=== PATIENT | female | born 1955 | race Caucasian/White ===

== ENCOUNTER → 2016-08-05 | Outpatient (REF) | payer OTHER ==
[~2016-08-05] MED LIST: BUSP10TA2 OR; EC-N500T OR; FLEXARIL PO; FURO20TA2 OR; METROPROLOL PO; POTASSIUM OR; SERT50TA2 OR; VICO5TAB OR; VITAMIN D PO; VITAMIN D50000 UNT OR; [UNRECOGNIZED DRUG - OTHER] PO; [UNRECOGNIZED DRUG - OTHER] PO
[2016-08-05 11:47] LABS: BASO % 0.7 % (0.0-1.0); EOS # 0.1 K/mm3 (0.0-0.50); EOS % 2.5 % (0.0-3.0); LARGE UNSTAINED CELL # 0.1 K/mm3 (0.0-0.4); LARGE UNSTAINED CELL % 1.4 % (0.0-4.0); LYMPH # 1.8 K/mm3 (1.5-4.5); LYMPH % 34.8 % (24.0-44.0); MEAN CORPUSCULAR HEMOGLOBIN 31.1 pg (27.0-33.0); MEAN CORPUSCULAR HGB CONC 32.3 g/dl (32.0-36.5); MEAN CORPUSCULAR VOLUME 96.3 fl (80.0-96.0); MONO # 0.3 K/mm3 (0.0-0.8); MONO % 5.6 % (0.0-5.0); NEUTROPHILS # 2.7 K/mm3 (1.8-7.7); PLATELET COUNT, AUTOMATED 186 k/mm3 (150-450)
[2016-08-05 12:05] LABS: ALBUMIN 3.5 GM/DL (3.2-5.2); ALKALINE PHOSPHATASE 71 U/L (45-117); ALT/SGPT 20 U/L (12-78); ANION GAP 7 MEQ/L (8-16); AST/SGOT 16 U/L (15-37); BILIRUBIN,TOTAL 0.4 MG/DL (0.2-1.0); BLOOD UREA NITROGEN 14 MG/DL (7-18); CALCIUM LEVEL 8.9 MG/DL (8.5-10.1); CARBON DIOXIDE LEVEL 28 MEQ/L (21-32); CHLORIDE LEVEL 110 MEQ/L (98-107); CHOLESTEROL LEVEL 216 MG/DL (<200); CREATININE FOR GFR 0.53 MG/DL (0.55-1.02); GLOMERULAR FILTRATION RATE > 60.0 (>51); GLUCOSE, FASTING 82 MG/DL (70-105); POTASSIUM SERUM 4.3 MEQ/L (3.5-5.1); SODIUM LEVEL 145 MEQ/L (136-145); TRIGLYCERIDES LEVEL 62 MG/DL (<150)
== END ==
LOC: M SFHCPLAZ 08:31
PROVIDERS: ATTEND Nurse Practitioner Family
DX: D50.9 Iron deficiency anemia, unspecified (principal); I10 Essential (primary) hypertension

== ENCOUNTER → 2016-09-02 | Outpatient (CLI) | payer OTHER ==
--- NOTE | 2016-09-02 08:46 | REPMRS ---
Patient History The patient states she has not had a clinical breast exam in over a year. Patient is postmenopausal. Family history of colorectal cancer in maternal grandfather. Benign stereotactic core biopsy of the right breast, 2006. Digital Woman Screen Mammo: September 02, 2016 - Exam #: [id number] Bilateral CC and MLO view(s) were taken. Technologist: Lani Weems, Technologist Prior study comparison: January 16, 2015, bilateral digital mammo screening bilat, performed at [facility]. July 14, 2010, digital bilateral screening mammo, performed at [facility]. FINDINGS: There are scattered fibroglandular densities. There has been no change in the appearance of the mammogram from the prior studies. There is a marker clip adjacent to a nodule in the upper outer quadrant of the right breast again noted. The nodule is a little smaller. There is a mild amount of scattered fibroglandular density which is fairly symmetric. There is no interval development of dominant mass, architectural distortion, or clustered microcalcification suggestive of malignancy. ASSESSMENT: BI-RADS/ACR category 2 mammogram. Benign finding(s). Recommendation Routine screening mammogram in 1 year (for women over age 40). This mammogram was interpreted with the aid of an FDA-approved computer-aided dectection system. Electronically Signed By: Dank Sanchez MD 09/02/16 0846
== END ==
LOC: M WHC 08:06
PROVIDERS: ATTEND Nurse Practitioner Family
DX: Z12.31 Encounter for screening mammogram for malignant neoplasm of breast (principal)

== ENCOUNTER → 2016-11-04 | Outpatient (REF) | payer OTHER ==
[2016-11-04 11:47] LABS: BASO % 0.5 % (0.0-1.0); EOS # 0.1 K/mm3 (0.0-0.50); EOS % 1.2 % (0.0-3.0); LARGE UNSTAINED CELL # 0.1 K/mm3 (0.0-0.4); LARGE UNSTAINED CELL % 1.3 % (0.0-4.0); LYMPH # 1.5 K/mm3 (1.5-4.5); LYMPH % 28.1 % (24.0-44.0); MEAN CORPUSCULAR HEMOGLOBIN 32.2 pg (27.0-33.0); MEAN CORPUSCULAR HGB CONC 33.8 g/dl (32.0-36.5); MEAN CORPUSCULAR VOLUME 95.4 fl (80.0-96.0); MONO # 0.3 K/mm3 (0.0-0.8); MONO % 5.4 % (0.0-5.0); NEUTROPHILS # 3.2 K/mm3 (1.8-7.7); NEUTROPHILS % 63.5 % (36.0-66.0); PLATELET COUNT, AUTOMATED 197 k/mm3 (150-450); RED CELL DISTRIBUTION WIDTH 12.1 % (11.5-14.5); WHITE BLOOD COUNT 5.1 K/mm3 (4.0-10.0)
[2016-11-04 11:56] LABS: ALBUMIN 3.8 GM/DL (3.2-5.2); ALBUMIN/GLOBULIN RATIO 1.46 (1.00-1.93); ALKALINE PHOSPHATASE 79 U/L (45-117); ALT/SGPT 17 U/L (12-78); ANION GAP 8 MEQ/L (8-16); AST/SGOT 9 U/L (15-37); BILIRUBIN,TOTAL 0.4 MG/DL (0.2-1.0); BLOOD UREA NITROGEN 14 MG/DL (7-18); CALCIUM LEVEL 9.3 MG/DL (8.8-10.2); CARBON DIOXIDE LEVEL 28 MEQ/L (21-32); CHLORIDE LEVEL 108 MEQ/L (98-107); CREATININE FOR GFR 0.56 MG/DL (0.55-1.02); GLOMERULAR FILTRATION RATE > 60.0 (>45); GLUCOSE, FASTING 81 MG/DL (80-110); POTASSIUM SERUM 4.5 MEQ/L (3.5-5.1); SODIUM LEVEL 144 MEQ/L (136-145); TOTAL PROTEIN 6.4 GM/DL (6.4-8.2)
== END ==
LOC: M SFHCPLAZ 08:09
PROVIDERS: ATTEND Nurse Practitioner Family
DX: D50.9 Iron deficiency anemia, unspecified (principal); I10 Essential (primary) hypertension

== ENCOUNTER → 2016-11-25 | Outpatient (CLI) | payer OTHER ==
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
== END ==
LOC: M PAIN 15:30
PROVIDERS: ATTEND Anesthesiology
DX: G89.29 Other chronic pain (principal); M47.812 Spondylosis without myelopathy or radiculopathy, cervical region; M79.1 Myalgia; E55.9 Vitamin D deficiency, unspecified; D50.9 Iron deficiency anemia, unspecified; I10 Essential (primary) hypertension; E78.4 Other hyperlipidemia; E53.8 Deficiency of other specified B group vitamins; F41.9 Anxiety disorder, unspecified; F32.9 Major depressive disorder, single episode, unspecified; G43.909 Migraine, unspecified, not intractable, without status migrainosus; I87.2 Venous insufficiency (chronic) (peripheral); G47.30 Sleep apnea, unspecified; Z79.899 Other long term (current) drug therapy; Z87.891 Personal history of nicotine dependence

== ENCOUNTER → 2016-11-30 | Outpatient (CLI) | payer OTHER ==
[~2016-11-30] MED LIST changes: +BUPIVACAINE HCL 0.25% 10 ML VIAL As Ordered ONE; +BUPIVACAINE HCL 0.25% 30 ML VIAL As Ordered ONE; +TRIAMCINOLONE ACETONIDE SUSP 40 MG/ML VIAL (J3301) As Ordered ONE; +diazePAM 5 MG TAB As Ordered ONE; +oxyCODONE 5MG TAB As Ordered ONE
--- NOTE | 2016-12-04 23:30 | ECWPNPC ---
PATIENT NAME: BAMBI ENRIQUEZ : 1955 GENDER: FEMALE VISIT DATE: 11/30/2016 DISCHARGE DATE: 11/30/161650 VISIT LOCKED DATE TIME: PHYSICIAN: RACHELLE RIVERS RESOURCE: RACHELLE RIVERS REASON FOR APPOINTMENT 1. TPI BILATERAL NECK AND LEFT SHOULDER HISTORY OF PRESENT ILLNESS HISTORY OF PRESENT ILLNESS: PAIN THE PATIENT DESCRIBES THE PAIN... FALL RISK SCREENING: SCREENING :NO FALLS IN THE PAST YEAR CURRENT MEDICATIONS TAKING BIOTIN 1000 MCG TABLET 1 TABLET ORALLY ONCE A DAY, NOTES: NONE TAKING VITAMIN C 1000 MG TABLET 1 TABLET ORALLY ONCE A DAY, NOTES: 11-29-16 AM TAKING VITAMIN B 12 500 MCG TABLET 1 TAB(S) ORALLY ONCE A DAY, NOTES: 11-29-16 AM TAKING CALCIUM 600 MG TABLET 1 TABLET WITH MEALS ORALLY ONCE A DAY, NOTES: 11-29-16 TAKING DRISDOL 81833 UNIT CAPSULE 1 CAPSULE ORALLY ONCE A WEEK, NOTES: MONDAY TAKING NORCO 5-325 MG TABLET 1 TABLET ORALLY TWICE DAILY NEEDED, MDD=2, NOTES: 11-30-16399 TAKING METOPROLOL TARTRATE 50 MG TABLET 1 TABLET ORALLY DAILY, NOTES: 11-29-16 AM TAKING BUSPIRONE HCL 10 MG TABLET 1 TAB ORALLY TWICE A DAY, NOTES: 11-29-162099 TAKING ZONISAMIDE 50 MG CAPSULE 1 CAPSULE ORALLY 50MG IN AM AND 100MG I PM, NOTES: 11-30-16399 TAKING IMITREX 25 MG TABLET 1 TABLET NEEDED ORALLY ONE PILL AT ONSET OF HEADACHE, MAY REPEAT X 1 IN 2 HOURS HAS APPROX 4 HEADACHES A MONTH, NOTES: NONE TAKING FERROUS SULFATE 325 (65 FE) MG TABLET 1 TABLET ORALLY DAILY, NOTES: 11-29-16 AM TAKING DULOXETINE HCL 30 MG CAPSULE DELAYED RELEASE PARTICLES 1 CAPSULE WITH FOOD ORALLY FOR PAIN TWICE A DAY MDD2, NOTES: 11-29-16 AM TAKING IBUPROFEN 800 MG TABLET 1 TABLET WITH FOOD OR MILK ORALLY NEEDED FOR PAIN MDD3 THREE TIMES A DAY, NOTES: 11-30-16 0900 DISCONTINUED MOBIC 15 MG TABLET 1 TABLET ORALLY ONCE A DAY DISCONTINUED ZOSTAVAX 74596 UNT/0.65ML SOLUTION RECONSTITUTED 1 INJECTION SUBCUTANEOUS ONE TIME DOSE DISCONTINUED HYDROCHLOROTHIAZIDE 12.5 MG TABLET 1 TABLET IN THE MORNING ORALLY ONCE A DAY MEDICATION LIST REVIEWED AND RECONCILED WITH THE PATIENT PAST MEDICAL HISTORY VIT D DEF 11/26 R KNEE XRAY WITH MODERATE OA CHANGES DEPRESSION/ANXIETY HTN FE DEF B12 DEF CHRONIC VENOUS INSUFF INSOMNIA HYPERLIPIDEMIA 08/29 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 ALLERGIES N.K.D.A. REVIEW OF SYSTEMS REVIEWED BY: PROVIDER: . CONSTITUTIONAL: ANY CHANGE IN YOUR MEDICAL CONDITION? NO . CHILLS NO . FEVER NO . INFECTION: DO YOU HAVE NEW INFECTIONS? NO . DO YOU HAVE HISTORY OF MRSA? NO . MUSCULOSKELETAL: ANY NEW PATTERNS OF PAIN OR NUMBNESS? NO . GASTROENTEROLOGY: ANY NEW CHANGE IN BOWEL CONTROL? NO . GENITOURINARY: ANY NEW CHANGE IN BLADDER CONTROL? NO . IS THERE A CHANCE YOU COULD BE ? NO . HEMATOLOGY/LYMPH: DO YOU TAKE ANY BLOOD THINNERS? (FOR EXAMPLE- COUMADIN, PLAVIX, AGGRENOX, PLATEL, PRADAXA, OR XARELTO) NO . WHEN WAS YOUR LAST DOSE? DATE: TIME: . NEUROLOGY: HAVE YOU FALLEN IN THE PAST 6 MONTHS? NO . ANY NEW EXTREMITY NUMBNESS OR WEAKNESS? NO . CARDIOLOGY: DO YOU HAVE A PACEMAKER OR DEFIBRILLATOR? NO . RESPIRATORY: HAVE YOU BEEN SICK IN THE PAST WEEK? NO . FEVER NO . FLU LIKE SYMPTOMS? NO . COUGH NO . INTEGUMENTARY: DO YOU HAVE ANY RASHES OR OPEN SORES? NO . ALLERGIC/IMMUNO: ARE YOU ALLERGIC TO SHELLFISH OR IV DYE? NO . ANY NEW ALLERGIES? NO . PSYCHIATRIC: DO YOU HAVE THOUGHTS OF HURTING YOURSELF OR SOMEONE ELSE? NO . ARE YOU ABUSED, NEGLECTED, OR IN AN UNSAFE ENVIRONMENT? NO . ENDOCRINOLOGY: ARE YOU DIABETIC? NO . OTHER: DO YOU NEED ANY PRESCRIPTIONS? NO . IF YES, PLEASE LIST: ____ . ANY NEW PROBLEMS WITH YOUR MEDICATIONS? NO . WHEN DID YOU LAST EAT? 11-30-16 AM . WHEN DID YOU LAST DRINK? 11-30-16 1030 . WHAT DID YOU LAST DRINK? BLACK COFFEE . NAME OF PERSON DRIVING YOU HOME? MIGUEL . DO YOU HAVE ANY OTHER QUESTIONS OR CONCERNS NO . VITAL SIGNS WT 143 LBS, HT 61 IN, BMI 27.02 INDEX, BP 113/58 MM HG, HR 68 /MIN, RR 16 /MIN, TEMP 98.8 F, OXYGEN SAT % 99%, NA INITIALS AW 1456, REVIEWED BY: CM. ASSESSMENTS MYALGIA - M79.1 (PRIMARY) PROCEDURES PN TRIGGER POINT INJECTION WITH STEROIDS PRE PROCEDURE DIAGNOSIS 1. MYALGIA 2. PAIN AT BILATERAL NECK AREA AND LEFT SHOULDER AREA POST PROCEDURE DIAGNOSIS 1. MYALGIA 2. PAIN AT BILATERAL NECK AREA AND LEFT SHOULDER AREA PROCEDURE TRIGGER POINT INJECTION AT BILATERAL NECK AREA AND LEFT SHOULDER AREA SURGEON DR. RACHELLE RIVERS CURRICULUM COORDINATOR NONE ANESTHESIA LOCAL PRE PROCEDURE NOTE THE PATIENT HAS A HISTORY OF CHRONIC PAIN AT THE RIGHT AND LEFT NECK AREA AND AT THE LEFT SHOULDER AREA. I EVALUATE THE PATIENT AND REVIEWED THE CHART. THERE IS EVIDENCE OF BANDS OF TISSUE WITH RESTRICTION OF MOVEMENT AND PRESENCE OF TRIGGER POINT AT THE AFFECTED AREA. I WENT OVER THE RISKS, ALTERNATIVES, AND BENEFITS ASSOCIATED WITH THIS PROCEDURE. THE PATIENT WOULD LIKE TO PROCEED AND GIVE CONSENT TO PERFORMED THE PROCEDURE. THE PATIENT DENIES UNEXPLAINABLE WEIGHT LOSS, FEVER, CHILLS, OR NEW CHANGES IN URINARY OR BOWEL CONTROL DESCRIPTION OF PROCEDURE THE PATIENT WAS BROUGHT TO THE PROCEDURE ROOM AND PLACED IN THE SITTING POSITION. THE AREA WAS CLEANED WITH ALCOHOL. THE PROCEDURE WAS DONE USING ASEPTIC STERILE TECHNIQUE. I CHECKED LATERALITY AND THE LEVEL WHERE THE PROCEDURE WAS GOING TO BE PERFORMED WITH THE PATIENT AND THE SUPPORTING STAFF AT THE MOMENT OF THE TIME OUT IN THE PROCEDURE ROOM. USING A 25-GAUGE NEEDLE, TRIGGER POINTS WERE INJECTED AT THE RIGHT AND LEFT NECK AREA AND AT THE LEFT SHOULDER AREA WITH A TOTAL OF 40 ML OF BUPIVACAINE 0.25% AND KENALOG 40 MG. THERE WAS NO EVIDENCE OF BLOOD, PARESTHESIA OR CEREBROSPINAL FLUID DURING THE PROCEDURE. THE PATIENT WAS SENT TO THE RECOVERY ROOM. THE PATIENT WAS MOVING THE EXTREMITIES AND DOING WELL. THERE WAS NO COMPLICATION DURING THE PROCEDURE POST PROCEDURE NOTE THE PATIENT WILL BE SEEN IN A FOLLOW UP IN THE NEXT FEW WEEKS. INSTRUCTIONS WERE GIVEN, QUESTIONS WERE ANSWERED, AND THE PATIENT EXPRESSED UNDERSTANDING AND AGREES WITH THE PLAN. I JORDYN MUSE DOCUMENTED THE ABOVE INFORMATION ACTING A SHRIMPER FOR DR. RIVERS. I HAVE REVIEWED THE ABOVE DOCUMENT WRITTEN BY JORDYN MUSE SCRIBMyriam AND I VERIFY THAT IT IS ACCURATE. PROCEDURE CODES 24500 INJECT TRIGGER POINTS 3/> DISPOSITION & COMMUNICATION FOLLOW UP 3 WEEKS ELECTRONICALLY SIGNED BY RACHELLE RIVERS MD ON 12/04/2016 AT 12:53 PM EDT DISCLAIMER : THIS IS A VISIT SUMMARY EXTRACTED FROM THE Turned On Digital CHART. IT IS NOT A COPY OF THE [employer]ed On Digital PROGRESS NOTE. [facility]
== END ==
LOC: M PAIN 14:45
PROVIDERS: ATTEND Anesthesiology
DX: G89.29 Other chronic pain (principal); M54.2 Cervicalgia; M25.512 Pain in left shoulder; M79.1 Myalgia; F32.9 Major depressive disorder, single episode, unspecified; F41.9 Anxiety disorder, unspecified; I10 Essential (primary) hypertension; I87.2 Venous insufficiency (chronic) (peripheral); E53.8 Deficiency of other specified B group vitamins; D50.9 Iron deficiency anemia, unspecified; G43.909 Migraine, unspecified, not intractable, without status migrainosus; E78.4 Other hyperlipidemia; M17.11 Unilateral primary osteoarthritis, right knee; Z79.891 Long term (current) use of opiate analgesic; Z79.899 Other long term (current) drug therapy
CPT/HCPCS: 20553; J3301

== ENCOUNTER → 2016-12-21 | Outpatient (CLI) | payer OTHER ==
[~2016-12-21] MED LIST changes: -BUPIVACAINE HCL 0.25% 10 ML VIAL As Ordered ONE; -BUPIVACAINE HCL 0.25% 30 ML VIAL As Ordered ONE; -TRIAMCINOLONE ACETONIDE SUSP 40 MG/ML VIAL (J3301) As Ordered ONE; -diazePAM 5 MG TAB As Ordered ONE; -oxyCODONE 5MG TAB As Ordered ONE
--- NOTE | 2017-01-11 01:45 | ECWPNPC ---
PATIENT NAME: BAMBI ENRIQUEZ : 1955 GENDER: FEMALE VISIT DATE: 12/21/2016 DISCHARGE DATE: 12/21/16 1251 VISIT LOCKED DATE TIME: PHYSICIAN: ANDREW CORMIER RESOURCE: ANDREW CORMIER REASON FOR APPOINTMENT 1. POST TPI HISTORY OF PRESENT ILLNESS TODAY'S VISIT: NOTES: RATES PAIN TODAY 6/10. PAIN CENTERED AT BASE OF NECK. DESCRIBES PAIN INTERMITTANT, STABBING, ACHING, AND SORE. IS S/P TPI TO NECK/SHOULDER AREA ON 11/30/16. DID NOT EXPERIENCE MUCH PAIN RELIEF UNTIL ALMOST 2 WEEKS LATER. WAS STATED ON IBU 800 BUT MADE HER "DEATHLY SICK" IS S/P GASTRIC BYPASS 6 YEARS AGO. PAIN IS WORSE AT THE END OF THE DAY AFTER WORK. HAS INTERMITTANT N/T IN RIGHT HAND. ROM IN NECK IS POOR. SLEEP IS POOR DUE TO NECK PAIN. IS VERY TIRED.. CURRENT MEDICATIONS TAKING BIOTIN 1000 MCG TABLET 1 TABLET ORALLY ONCE A DAY TAKING VITAMIN C 1000 MG TABLET 1 TABLET ORALLY ONCE A DAY TAKING VITAMIN B 12 500 MCG TABLET 1 TAB(S) ORALLY ONCE A DAY TAKING CALCIUM 600 MG TABLET 1 TABLET WITH MEALS ORALLY ONCE A DAY TAKING DRISDOL 45642 UNIT CAPSULE 1 CAPSULE ORALLY ONCE A WEEK TAKING NORCO 5-325 MG TABLET 1 TABLET ORALLY TWICE DAILY NEEDED, MDD=2 TAKING METOPROLOL TARTRATE 50 MG TABLET 1 TABLET ORALLY DAILY TAKING BUSPIRONE HCL 10 MG TABLET 1 TAB ORALLY TWICE A DAY TAKING ZONISAMIDE 50 MG CAPSULE 1 CAPSULE ORALLY 50MG IN AM AND 100MG I PM TAKING IMITREX 25 MG TABLET 1 TABLET NEEDED ORALLY ONE PILL AT ONSET OF HEADACHE, MAY REPEAT X 1 IN 2 HOURS HAS APPROX 4 HEADACHES A MONTH TAKING FERROUS SULFATE 325 (65 FE) MG TABLET 1 TABLET ORALLY DAILY TAKING DULOXETINE HCL 30 MG CAPSULE DELAYED RELEASE PARTICLES 1 CAPSULE WITH FOOD ORALLY FOR PAIN TWICE A DAY MDD2, NOTES: HAS NOT RECIEVED YET NOT-TAKING IBUPROFEN 800 MG TABLET 1 TABLET WITH FOOD OR MILK ORALLY NEEDED FOR PAIN MDD3 THREE TIMES A DAY, NOTES: MAKES HER SICK MEDICATION LIST REVIEWED AND RECONCILED WITH THE PATIENT PAST MEDICAL HISTORY VIT D DEF 11/26 R KNEE XRAY WITH MODERATE OA CHANGES DEPRESSION/ANXIETY HTN FE DEF B12 DEF CHRONIC VENOUS INSUFF INSOMNIA HYPERLIPIDEMIA 08/29 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 ALLERGIES N.K.D.A. SURGICAL HISTORY CHOLECYSTECTOMY IN HER 30S GASTRIC BYPASS - DR MIRELES 03/27/2012 D & C X 2, WHEN YOUNGER D/T IRREG BLEEDING TONSILS AND ADENOIDS A CHILD R BREAST BX, DR NEELY 2008 HOSPITALIZATION/MAJOR DIAGNOSTIC PROCEDURE GASTRIC BYPASS 03/28 CHOLECYSTECTOMY IN HER 30S VAGINAL DELIVERIES 1975, REVIEW OF SYSTEMS FOLLOW-UP ROS: CARDIOLOGY: NEGATIVE FOR, CHEST PAIN, NO LEG SWELLING . GENERAL: POSITIVE FOR, FATIGUE, NO FEVER, SIGNIFICANT ABNOMAL WEIGHT CHANGE . PULMONOLOGY: NEGATIVE FOR, COUGH, SHORTNESS OF BREATH . VITAL SIGNS WT 143.6 LBS, HT 61 IN, BMI 27.13 INDEX, BP 109/53 MM HG, HR 65 /MIN, RR 16 /MIN, TEMP 98.7 F, OXYGEN SAT % 99%, NA INITIALS SC 12:06, REVIEWED BY: NL. EXAMINATION GENERAL EXAMINATION: PSYCHALERT , ORIENTED X 3 , APPROPRIATE MOOD AND AFFECT . LUNGS:CLEAR TO AUSCULTATION BILATERALLY. HEART:HEART RATE REGULAR, NORMAL S1S2, NO MURMURS, CLICK OR RUBS. MUSCULOSKELETAL:TRIGGER POINTS AND TIGHT FIBROUS BANDS OVER CERVICAL PAASPINOUS MUSCLES ANDBILATERALLY TO SCAPULAS. DECREASED ROM WITH NECK FLEXION AND EXTENSION. ASSESSMENTS MYALGIA - M79.1 (PRIMARY) SPONDYLOSIS WITHOUT MYELOPATHY OR RADICULOPATHY, CERVICAL REGION - M47.812 TREATMENT MYALGIA START TRAMADOL HCL TABLET, 50 MG, 1 TABLET NEEDED, ORALLY, EVERY6-8 HRS PRN PAIN MDD=3, 30 DAY(S), 80, REFILLS 1 START DULOXETINE HCL CAPSULE DELAYED RELEASE PARTICLES, 30 MG, 1 CAPSULE, ORALLY, BEFORE BEDTIME, 30 DAY(S), 30, REFILLS 1 TRIGGER POINT 3 + ANDREW STEIN 12/21/2016 12:43:31 PM > NECK SHOULDERS PREVENTIVE MEDICINE PREPROCEDURE INSTRUCTIONS GIVEN WITH PT UNDERSTANDING EXPRESSED. PROCEDURE CODES FA211 ESTABILISHED PATIENT [facility] FACILITY CHARGE DISPOSITION & COMMUNICATION FOLLOW UP AFTER PROCEDURE (REASON: CHECK AUTH FOR TPI/NECK) ELECTRONICALLY SIGNED BY MARGARITA VENTURA ON 01/10/2017 AT 08:34 AM EDT DISCLAIMER : THIS IS A VISIT SUMMARY EXTRACTED FROM THE [employer] CHART. IT IS NOT A COPY OF THE [employer] PROGRESS NOTE. MTDD
== END ==
LOC: M PAIN 11:30
PROVIDERS: ATTEND Nurse Practitioner Family
DX: G89.29 Other chronic pain (principal); M47.812 Spondylosis without myelopathy or radiculopathy, cervical region; M79.1 Myalgia; D50.9 Iron deficiency anemia, unspecified; I10 Essential (primary) hypertension; I87.2 Venous insufficiency (chronic) (peripheral); E78.4 Other hyperlipidemia; E53.8 Deficiency of other specified B group vitamins; F41.9 Anxiety disorder, unspecified; G43.909 Migraine, unspecified, not intractable, without status migrainosus; Z79.899 Other long term (current) drug therapy

== ENCOUNTER → 2017-02-24 | Outpatient (CLI) | payer OTHER ==
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
== END ==
LOC: M PAIN 13:45
PROVIDERS: ATTEND Nurse Practitioner Family
DX: G89.29 Other chronic pain (principal); M47.812 Spondylosis without myelopathy or radiculopathy, cervical region; M79.1 Myalgia; D50.9 Iron deficiency anemia, unspecified; I10 Essential (primary) hypertension; I87.2 Venous insufficiency (chronic) (peripheral); E78.4 Other hyperlipidemia; E53.8 Deficiency of other specified B group vitamins; F41.9 Anxiety disorder, unspecified; G43.909 Migraine, unspecified, not intractable, without status migrainosus; Z88.6 Allergy status to analgesic agent; Z88.5 Allergy status to narcotic agent; Z79.891 Long term (current) use of opiate analgesic; Z79.899 Other long term (current) drug therapy; Z87.891 Personal history of nicotine dependence

== ENCOUNTER 2017-04-10 05:18 | Emergency (ER) | payer OTHER ==
[2017-04-10] MEDS: NS 500 ML IV (06:46)
[2017-04-10] MEDS: SILVER SULFADIAZINE 1% CR 50 GM JAR TOP (06:47)
[2017-04-10] MEDS: MORPHINE 4 MG/ML 1ML SYRINGE IV (06:48)
[2017-04-10] MEDS: OXYCODONE/APAP 5MG/325MG(BULK FOR ED) 1 TABLET PO (08:06)
== END 2017-04-10 08:13 | disposition home or self-care (01) ==
LOC: M ED 05:18
DX: T22.111A Burn of first degree of right forearm, initial encounter (principal); T24.211A Burn of second degree of right thigh, initial encounter; X12.XXXA Contact with other hot fluids, initial encounter; Y92.090 Kitchen in other non-institutional residence as the place of occurrence of the external cause; Y93.G3 Activity, cooking and baking; Y99.9 Unspecified external cause status
CPT/HCPCS: 96374

== ENCOUNTER → 2017-04-12 | Outpatient (CLI) | payer OTHER ==
[~2017-04-12] MED LIST changes: +BUPIVACAINE HCL 0.25% 10 ML VIAL As Ordered; +BUPIVACAINE HCL 0.25% 30 ML VIAL As Ordered; -BUSP10TA2 OR; -EC-N500T OR; -FLEXARIL PO; -FURO20TA2 OR; -METROPROLOL PO; -POTASSIUM OR; -SERT50TA2 OR; +TRIAMCINOLONE ACETONIDE SUSP 40 MG/ML VIAL (J3301) As Ordered; -VICO5TAB OR; -VITAMIN D PO; -VITAMIN D50000 UNT OR; -[UNRECOGNIZED DRUG - OTHER] PO; -[UNRECOGNIZED DRUG - OTHER] PO; +diazePAM 5 MG TAB As Ordered; +oxyCODONE 5MG TAB As Ordered
== END ==
LOC: M PAIN 11:45
DX: G89.29 Other chronic pain (principal); M79.1 Myalgia; E55.9 Vitamin D deficiency, unspecified; M17.11 Unilateral primary osteoarthritis, right knee; F32.9 Major depressive disorder, single episode, unspecified; F41.9 Anxiety disorder, unspecified; I10 Essential (primary) hypertension; E53.8 Deficiency of other specified B group vitamins; I87.2 Venous insufficiency (chronic) (peripheral); G47.00 Insomnia, unspecified; M50.30 Other cervical disc degeneration, unspecified cervical region; Z79.891 Long term (current) use of opiate analgesic; Z79.899 Other long term (current) drug therapy; Z87.891 Personal history of nicotine dependence; Z88.6 Allergy status to analgesic agent; Z88.5 Allergy status to narcotic agent
CPT/HCPCS: J3301

== ENCOUNTER → 2017-04-26 | Outpatient (CLI) | payer OTHER | LOC: M PAIN 09:00 | DX: M47.812 Spondylosis without myelopathy or radiculopathy, cervical region (principal); M79.1 Myalgia; G43.909 Migraine, unspecified, not intractable, without status migrainosus; M17.11 Unilateral primary osteoarthritis, right knee; I10 Essential (primary) hypertension; E53.8 Deficiency of other specified B group vitamins; I87.2 Venous insufficiency (chronic) (peripheral); G47.00 Insomnia, unspecified; E78.5 Hyperlipidemia, unspecified; Z79.899 Other long term (current) drug therapy; Z88.5 Allergy status to narcotic agent; Z88.6 Allergy status to analgesic agent; Z87.891 Personal history of nicotine dependence | CPT/HCPCS: G0463 ==

== ENCOUNTER → 2017-05-17 | Outpatient (REF) | payer OTHER ==
[2017-05-17 12:03] LABS: BASO # 0.1 10^3/uL (0.0-0.2); BASO % 1.1 % (0.0-1.0); EOS # 0.2 10^3/uL (0.0-0.50); EOS % 2.9 % (0.0-3.0); HEMATOCRIT 44.9 % (36.0-47.0); HEMOGLOBIN 14.6 g/dl (12.0-16.0); IMMATURE GRANULOCYTE % 0.4 % (0-0); LYMPH # 1.9 10^3/uL (1.5-4.5); LYMPH % 34.3 % (24.0-44.0); MEAN CORPUSCULAR HEMOGLOBIN 31.4 pg (27.0-33.0); MEAN CORPUSCULAR HGB CONC 32.5 g/dl (32.0-36.5); MEAN CORPUSCULAR VOLUME 96.6 fl (80.0-96.0); MONO # 0.4 10^3/uL (0.0-0.8); NEUTROPHILS # 3.1 10^3/uL (1.8-7.7); NEUTROPHILS % 54.3 % (36.0-66.0); PLATELET COUNT, AUTOMATED 283 10^3/uL (150-450); RED BLOOD COUNT 4.65 10^6/uL (4.00-5.40); RED CELL DISTRIBUTION WIDTH 12.4 % (11.5-14.5); WHITE BLOOD COUNT 5.6 10^3/uL (4.0-10.0)
[2017-05-17 12:09] LABS: TOTAL 25(OH) VITAMIN D 46.3 NG/ML (30.0-100.0)
[2017-05-17 12:19] LABS: ALBUMIN 3.8 GM/DL (3.2-5.2); ALBUMIN/GLOBULIN RATIO 1.46 (1.00-1.93); ALKALINE PHOSPHATASE 66 U/L (45-117); ALT/SGPT 18 U/L (12-78); ANION GAP 4 MEQ/L (8-16); AST/SGOT 13 U/L (7-37); BILIRUBIN,TOTAL 0.3 MG/DL (0.2-1.0); BLOOD UREA NITROGEN 11 MG/DL (7-18); CALCIUM LEVEL 8.8 MG/DL (8.8-10.2); CARBON DIOXIDE LEVEL 30 MEQ/L (21-32); CHLORIDE LEVEL 108 MEQ/L (98-107); CREATININE FOR GFR 0.54 MG/DL (0.55-1.30); FREE T4 1.15 NG/DL (0.76-1.46); GLOMERULAR FILTRATION RATE > 60.0 (>45); GLUCOSE, FASTING 87 MG/DL (70-100); POTASSIUM SERUM 4.6 MEQ/L (3.5-5.1); SODIUM LEVEL 142 MEQ/L (136-145); TOTAL PROTEIN 6.4 GM/DL (6.4-8.2)
== END ==
LOC: M SFHCPLAZ 08:13
DX: I10 Essential (primary) hypertension (principal); R53.83 Other fatigue; D50.9 Iron deficiency anemia, unspecified; E55.9 Vitamin D deficiency, unspecified
CPT/HCPCS: 84443

== ENCOUNTER → 2017-06-07 | Outpatient (CLI) | payer OTHER | LOC: M PAIN 08:45 | DX: M79.1 Myalgia (principal); M47.812 Spondylosis without myelopathy or radiculopathy, cervical region; I10 Essential (primary) hypertension; D50.9 Iron deficiency anemia, unspecified; E78.5 Hyperlipidemia, unspecified; E55.9 Vitamin D deficiency, unspecified; Z79.891 Long term (current) use of opiate analgesic; Z79.899 Other long term (current) drug therapy; Z88.8 Allergy status to other drugs, medicaments and biological substances | CPT/HCPCS: G0463 ==

== ENCOUNTER → 2017-06-21 | Outpatient (CLI) | payer OTHER | LOC: M PAIN 14:30 | DX: G89.29 Other chronic pain (principal); M79.1 Myalgia; E55.9 Vitamin D deficiency, unspecified; F32.9 Major depressive disorder, single episode, unspecified; F41.9 Anxiety disorder, unspecified; E53.8 Deficiency of other specified B group vitamins; E78.5 Hyperlipidemia, unspecified; I87.2 Venous insufficiency (chronic) (peripheral); M17.11 Unilateral primary osteoarthritis, right knee; M50.20 Other cervical disc displacement, unspecified cervical region; Z98.84 Bariatric surgery status; Z87.891 Personal history of nicotine dependence; Z79.891 Long term (current) use of opiate analgesic; Z79.899 Other long term (current) drug therapy; Z88.5 Allergy status to narcotic agent; Z88.6 Allergy status to analgesic agent | CPT/HCPCS: J3301 ==

== ENCOUNTER → 2017-07-05 | Outpatient (CLI) | payer OTHER | LOC: M PAIN 08:30 | DX: M79.1 Myalgia (principal); M47.812 Spondylosis without myelopathy or radiculopathy, cervical region; E55.9 Vitamin D deficiency, unspecified; I10 Essential (primary) hypertension; E78.5 Hyperlipidemia, unspecified; Z79.891 Long term (current) use of opiate analgesic; Z79.899 Other long term (current) drug therapy; Z87.891 Personal history of nicotine dependence; Z88.8 Allergy status to other drugs, medicaments and biological substances | CPT/HCPCS: G0463 ==

== ENCOUNTER → 2017-07-19 | Outpatient (CLI) | payer OTHER ==
[~2017-07-19] MED LIST changes: -BUPIVACAINE HCL 0.25% 10 ML VIAL As Ordered; -BUPIVACAINE HCL 0.25% 30 ML VIAL As Ordered; +ISOVUE-M 300 61% 15ML VIAL (Q9967) As Ordered; +LIDOCAINE 1% SDV INJ 30 ML VIAL As Ordered; -TRIAMCINOLONE ACETONIDE SUSP 40 MG/ML VIAL (J3301) As Ordered; +methylPREDNISolone SUSP 40 MG/ML (DEPO-medrol) VIAL (J1030) As Ordered
== END ==
LOC: M PAIN 08:45
DX: G89.29 Other chronic pain (principal); M50.13 Cervical disc disorder with radiculopathy, cervicothoracic region; I10 Essential (primary) hypertension; D50.9 Iron deficiency anemia, unspecified; F32.9 Major depressive disorder, single episode, unspecified; E53.8 Deficiency of other specified B group vitamins; G47.00 Insomnia, unspecified; E78.5 Hyperlipidemia, unspecified; M17.11 Unilateral primary osteoarthritis, right knee; Z79.899 Other long term (current) drug therapy; Z88.5 Allergy status to narcotic agent; Z88.6 Allergy status to analgesic agent; Z98.84 Bariatric surgery status
CPT/HCPCS: J1030

== ENCOUNTER → 2017-08-09 | Outpatient (CLI) | payer OTHER | LOC: M PAIN 09:00 | DX: G89.29 Other chronic pain (principal); M50.13 Cervical disc disorder with radiculopathy, cervicothoracic region; M79.1 Myalgia; E55.9 Vitamin D deficiency, unspecified; F32.9 Major depressive disorder, single episode, unspecified; F41.9 Anxiety disorder, unspecified; I10 Essential (primary) hypertension; E53.8 Deficiency of other specified B group vitamins; I87.2 Venous insufficiency (chronic) (peripheral); G47.00 Insomnia, unspecified; E78.5 Hyperlipidemia, unspecified; M17.11 Unilateral primary osteoarthritis, right knee; M50.30 Other cervical disc degeneration, unspecified cervical region; Z87.891 Personal history of nicotine dependence; Z79.899 Other long term (current) drug therapy; Z88.5 Allergy status to narcotic agent; Z88.6 Allergy status to analgesic agent; Z98.84 Bariatric surgery status | CPT/HCPCS: G0463 ==

== ENCOUNTER → 2017-08-23 | Outpatient (REF) | payer OTHER ==
[2017-08-23 12:00] LABS: HEMATOCRIT 40.8 % (36.0-47.0); HEMOGLOBIN 13.2 g/dl (12.0-15.5); MEAN CORPUSCULAR HEMOGLOBIN 31.7 pg (27.0-33.0); MEAN CORPUSCULAR HGB CONC 32.4 g/dl (32.0-36.5); MEAN CORPUSCULAR VOLUME 97.8 fl (80.0-96.0); PLATELET COUNT, AUTOMATED 239 10^3/uL (150-450); RED BLOOD COUNT 4.17 10^6/uL (4.00-5.40); RED CELL DISTRIBUTION WIDTH 12.5 % (11.5-14.5); WHITE BLOOD COUNT 5.9 10^3/uL (4.0-10.0)
[2017-08-23 12:14] LABS: TOTAL 25(OH) VITAMIN D 40.6 NG/ML (30.0-100.0)
[2017-08-23 12:14] LABS: VITAMIN B12 LEVEL 916 PG/ML (247-911)
[2017-08-23 12:39] LABS: ALBUMIN 3.6 GM/DL (3.2-5.2); ALKALINE PHOSPHATASE 65 U/L (45-117); ALT/SGPT 14 U/L (12-78); ANION GAP 5 MEQ/L (8-16); AST/SGOT 11 U/L (7-37); BILIRUBIN,TOTAL 0.4 MG/DL (0.2-1.0); BLOOD UREA NITROGEN 8 MG/DL (7-18); CALCIUM LEVEL 8.9 MG/DL (8.8-10.2); CARBON DIOXIDE LEVEL 28 MEQ/L (21-32); CHLORIDE LEVEL 112 MEQ/L (98-107); CHOLESTEROL LEVEL 230 MG/DL (<200); CHOLESTEROL RISK RATIO 3.484 (<5); GLOMERULAR FILTRATION RATE > 60.0 (>45); GLUCOSE, FASTING 82 MG/DL (70-100); HDL CHOLESTEROL 66 MG/DL (>40); LDL CHOLESTEROL 152.4 MG/DL (<100); NON-HDL-C 164 MG/DL; POTASSIUM SERUM 4.6 MEQ/L (3.5-5.1); SODIUM LEVEL 145 MEQ/L (136-145); TRIGLYCERIDES LEVEL 58 MG/DL (<150)
[2017-08-23 14:08] LABS: CREATININE, URINE 57.4 MG/DL; MALB URINE SIEMENS 5.4 MG/L; MAU/CREAT RATIO 9.4 MCG/MG (0.0-30.0)
== END ==
LOC: M SFHCPLAZ 07:54
DX: Z00.00 Encounter for general adult medical examination without abnormal findings (principal); I10 Essential (primary) hypertension; E78.4 Other hyperlipidemia; D50.9 Iron deficiency anemia, unspecified; E53.8 Deficiency of other specified B group vitamins; M54.2 Cervicalgia; E55.9 Vitamin D deficiency, unspecified

== ENCOUNTER → 2017-09-06 | Outpatient (CLI) | payer OTHER | LOC: M WHC 07:54 | DX: Z12.31 Encounter for screening mammogram for malignant neoplasm of breast (principal); Z78.0 Asymptomatic menopausal state | CPT/HCPCS: 77067 ==

== ENCOUNTER → 2017-11-29 | Outpatient (CLI) | payer OTHER | LOC: M PAIN 11:15 | DX: M50.13 Cervical disc disorder with radiculopathy, cervicothoracic region (principal); M79.1 Myalgia; I10 Essential (primary) hypertension; F32.9 Major depressive disorder, single episode, unspecified; F41.9 Anxiety disorder, unspecified; M17.11 Unilateral primary osteoarthritis, right knee; Z79.891 Long term (current) use of opiate analgesic; Z79.899 Other long term (current) drug therapy; Z88.6 Allergy status to analgesic agent; Z88.5 Allergy status to narcotic agent; Z86.79 Personal history of other diseases of the circulatory system; Z98.84 Bariatric surgery status | CPT/HCPCS: G0463 ==

== ENCOUNTER → 2017-12-20 | Outpatient (CLI) | payer OTHER | LOC: M PAIN 09:30 | DX: G89.29 Other chronic pain (principal); M50.10 Cervical disc disorder with radiculopathy, unspecified cervical region; M48.02 Spinal stenosis, cervical region; E55.9 Vitamin D deficiency, unspecified; F32.9 Major depressive disorder, single episode, unspecified; F41.9 Anxiety disorder, unspecified; I10 Essential (primary) hypertension; E53.8 Deficiency of other specified B group vitamins; D50.9 Iron deficiency anemia, unspecified; G47.00 Insomnia, unspecified; E78.5 Hyperlipidemia, unspecified; M17.11 Unilateral primary osteoarthritis, right knee; Z79.891 Long term (current) use of opiate analgesic; Z79.899 Other long term (current) drug therapy; Z88.5 Allergy status to narcotic agent; Z88.6 Allergy status to analgesic agent; Z86.79 Personal history of other diseases of the circulatory system; Z87.891 Personal history of nicotine dependence; Z98.84 Bariatric surgery status | CPT/HCPCS: J1030 ==

== ENCOUNTER → 2017-12-27 | Outpatient (REF) | payer OTHER ==
[2017-12-27 14:31] LABS: ALBUMIN 4.1 GM/DL (3.2-5.2); ALBUMIN/GLOBULIN RATIO 1.52 (1.00-1.93); ALKALINE PHOSPHATASE 76 U/L (45-117); ALT/SGPT 17 U/L (12-78); ANION GAP 7 MEQ/L (8-16); AST/SGOT 15 U/L (7-37); BILIRUBIN,TOTAL 0.4 MG/DL (0.2-1.0); BLOOD UREA NITROGEN 9 MG/DL (7-18); CALCIUM LEVEL 9.8 MG/DL (8.8-10.2); CARBON DIOXIDE LEVEL 25 MEQ/L (21-32); CHLORIDE LEVEL 109 MEQ/L (98-107); CREATININE FOR GFR 0.52 MG/DL (0.55-1.30); GLOMERULAR FILTRATION RATE > 60.0 (>45); GLUCOSE, FASTING 80 MG/DL (70-100); POTASSIUM SERUM 4.9 MEQ/L (3.5-5.1); SODIUM LEVEL 141 MEQ/L (136-145); TOTAL PROTEIN 6.8 GM/DL (6.4-8.2)
== END ==
LOC: M SFHCPLAZ 08:47
DX: Z00.00 Encounter for general adult medical examination without abnormal findings (principal); E55.9 Vitamin D deficiency, unspecified; I10 Essential (primary) hypertension

== ENCOUNTER → 2018-01-31 | Outpatient (CLI) | payer OTHER | LOC: M PAIN 08:30 | DX: M50.13 Cervical disc disorder with radiculopathy, cervicothoracic region (principal); M79.18 Myalgia, other site; I10 Essential (primary) hypertension; D50.9 Iron deficiency anemia, unspecified; E53.8 Deficiency of other specified B group vitamins; F32.9 Major depressive disorder, single episode, unspecified; F41.9 Anxiety disorder, unspecified; M17.11 Unilateral primary osteoarthritis, right knee; E78.5 Hyperlipidemia, unspecified; G47.00 Insomnia, unspecified; Z79.899 Other long term (current) drug therapy; Z88.5 Allergy status to narcotic agent; Z88.6 Allergy status to analgesic agent; Z98.84 Bariatric surgery status; Z86.79 Personal history of other diseases of the circulatory system; Z87.891 Personal history of nicotine dependence | CPT/HCPCS: G0463 ==

== ENCOUNTER → 2018-03-28 | Outpatient (REF) | payer OTHER ==
[2018-04-04 14:14] LABS: HPV HYBRID CAPTURE II Negative (Negative)
== END ==
LOC: M SFHCPLAZ 12:10
DX: Z12.4 Encounter for screening for malignant neoplasm of cervix (principal); N76.0 Acute vaginitis
CPT/HCPCS: 88142

== ENCOUNTER → 2018-05-09 | Outpatient (REF) | payer OTHER ==
[~2018-05-09] MED LIST changes: +BUSP10TA2 OR; +EC-N500T OR; +FLEXARIL PO; +FURO20TA2 OR; +GABA-1171; -ISOVUE-M 300 61% 15ML VIAL (Q9967) As Ordered; -LIDOCAINE 1% SDV INJ 30 ML VIAL As Ordered; +METROPROLOL PO; +POTASSIUM OR; +SERT50TA2 OR; +SILV1CRE60 TOP; +VICO5TAB OR; +VITAMIN D PO; +VITAMIN D50000 UNT OR; +ZONI50CA3; +[UNRECOGNIZED DRUG - OTHER] PO; +[UNRECOGNIZED DRUG - OTHER] PO; -diazePAM 5 MG TAB As Ordered; -methylPREDNISolone SUSP 40 MG/ML (DEPO-medrol) VIAL (J1030) As Ordered; -oxyCODONE 5MG TAB As Ordered
[2018-05-09 11:57] LABS: HEMATOCRIT 45.8 % (36.0-47.0); HEMOGLOBIN 14.6 g/dl (12.0-15.5); MEAN CORPUSCULAR HGB CONC 31.9 g/dl (32.0-36.5); MEAN CORPUSCULAR VOLUME 97.2 fl (80.0-96.0); PLATELET COUNT, AUTOMATED 252 10^3/uL (150-450); RED BLOOD COUNT 4.71 10^6/uL (4.00-5.40); WHITE BLOOD COUNT 4.9 10^3/uL (4.0-10.0)
[2018-05-09 12:03] LABS: BLOOD UREA NITROGEN 9 MG/DL (7-18); CALCIUM LEVEL 9.3 MG/DL (8.8-10.2); CARBON DIOXIDE LEVEL 28 MEQ/L (21-32); CHLORIDE LEVEL 107 MEQ/L (98-107); CREATININE FOR GFR 0.54 MG/DL (0.55-1.30); GLOMERULAR FILTRATION RATE > 60.0 (>45); GLUCOSE, FASTING 84 MG/DL (70-100); IRON (FE) 119 UG/DL (50-170); PERCENT SATURATION 36.2 % (13.2-45.0); POTASSIUM SERUM 4.7 MEQ/L (3.5-5.1); SODIUM LEVEL 140 MEQ/L (136-145); TOTAL IRON BINDING CAPACITY 329 UG/DL (250-450)
[2018-05-09 15:04] LABS: TOTAL 25(OH) VITAMIN D 36.4 NG/ML (30.0-100.0)
== END ==
LOC: M SFHCPLAZ 09:37
PROVIDERS: ATTEND Nurse Practitioner Family
DX: D50.9 Iron deficiency anemia, unspecified (principal); M17.11 Unilateral primary osteoarthritis, right knee; I10 Essential (primary) hypertension; E55.9 Vitamin D deficiency, unspecified

== ENCOUNTER 2018-07-14 17:35 | Emergency (ER) | payer OTHER ==
[~2018-07-14] VITALS: Ht 154.9 cm; Wt 65.5 kg
[2018-07-14] MEDS ORDERED: METO50TA7 PO (17:51)
[2018-07-14] MEDS ORDERED: NS 500 ML IV ONE (19:15)
[2018-07-14] MEDS ORDERED: ACETAMINOPHEN 325 MG TAB PO ONE (19:15)
[2018-07-14 19:40] LABS: BASO % 0.7 % (0.0-1.0); EOS # 0.1 10^3/uL (0.0-0.50); EOS % 1.4 % (0.0-3.0); HEMATOCRIT 39.2 % (36.0-47.0); HEMOGLOBIN 12.9 g/dl (12.0-15.5); LYMPH % 33.7 % (24.0-44.0); MEAN CORPUSCULAR HEMOGLOBIN 31.3 pg (27.0-33.0); MEAN CORPUSCULAR HGB CONC 32.9 g/dl (32.0-36.5); MEAN CORPUSCULAR VOLUME 95.1 fl (80.0-96.0); MONO # 0.4 10^3/uL (0.0-0.8); MONO % 6.4 % (0.0-5.0); NEUTROPHILS # 3.3 10^3/uL (1.8-7.7); NEUTROPHILS % 57.5 % (36.0-66.0); PLATELET COUNT, AUTOMATED 210 10^3/uL (150-450); RED BLOOD COUNT 4.12 10^6/uL (4.00-5.40); WHITE BLOOD COUNT 5.8 10^3/uL (4.0-10.0)
[2018-07-14 19:50] LABS: INR 0.97
[2018-07-14 19:51] LABS: PARTIAL THROMBOPLASTIN TIME 28.6 SECONDS (25.4-37.6)
[2018-07-14 20:07] LABS: ALBUMIN 3.5 GM/DL (3.2-5.2); ALT/SGPT 15 U/L (12-78); BILIRUBIN,DIRECT < 0.1 MG/DL (0.0-0.2); BILIRUBIN,TOTAL 0.3 MG/DL (0.2-1.0); BLOOD UREA NITROGEN 15 MG/DL (7-18); CALCIUM LEVEL 8.9 MG/DL (8.8-10.2); CARBON DIOXIDE LEVEL 24 MEQ/L (21-32); CHLORIDE LEVEL 112 MEQ/L (98-107); CREATININE FOR GFR 0.44 MG/DL (0.55-1.30); GLOMERULAR FILTRATION RATE > 60.0 (>45); GLUCOSE, FASTING 86 MG/DL (70-100); LIPASE 178 U/L (73-393); SODIUM LEVEL 142 MEQ/L (136-145); TOTAL PROTEIN 5.8 GM/DL (6.4-8.2)
[2018-07-14] MEDS ORDERED: ISOVUE-370 76% 125ML VIAL (Q9967 PER ML) As Ordered ONE (20:09)
--- NOTE | 2018-07-14 20:30 | REP ---
Clinical: Trauma . Comparison: 04/17/2015 . Findings: The ventricles, sulci, and cisterns are normal in position and appearance. Armendariz-white differentiation is maintained. No acute intracranial hemorrhage, mass/mass effect, pathology or trauma/injury. No evidence for acute infarction. No extra-axial fluid collection. Calvarium is intact. Paranasal sinuses and mastoid air cells are clear. Impression: Normal noncontrast head CT. No evidence for acute intracranial pathology or trauma/injury. Electronically Signed by Wilfrid Caballero MD 07/14/2018 08:22 P
--- NOTE | 2018-07-14 20:32 | REP ---
Clinical: Trauma. Technique: Axial noncontrast images from the skull base to the thoracic inlet with coronal and sagittal re-formations. Comparison: 04/17/2015. Findings: Mild reversal of normal lordosis at the C3-4 and moderate/advanced multilevel degenerative disc osteophyte complexes remain stable compared to 2016. No acute fracture / compression injury or subluxation. Posterior elements and spinous processes are intact. Spinal canal is patent. Paravertebral soft tissues are normal. Impression: Stable multilevel degenerative changes. No acute fracture / compression injury or subluxation. Electronically Signed by Wilfrid Caballero MD 07/14/2018 08:24 P
--- NOTE | 2018-07-14 20:35 | REP ---
Clinical: Trauma. Technique: Axial contrast enhanced images from the thoracic inlet to the upper abdomen with coronal and sagittal re-formations using 100 ml Isovue 370 intravenous contrast material. Findings: Bilateral lung moya are well-aerated and clear. Very minimal posterior basilar dependent changes are appreciated. No consolidation/contusion, pleural effusion, or pneumothorax. Tracheobronchial tree is patent. No adenopathy. The mediastinum demonstrates atherosclerotic changes to the thoracic aorta and coronary arteries without aortic aneurysm/dissection or injury. No cardiomegaly or pericardial effusion. No mediastinal trauma/hematoma. Musculoskeletal structures demonstrate age-related changes without acute trauma/injury. Impression: No acute mediastinal or pleuroparenchymal trauma/injury or pathology. Electronically Signed by Wilfrid Caballero MD 07/14/2018 08:27 P
--- NOTE | 2018-07-14 20:37 | REP ---
Clinical: Trauma. Technique: Axial contrast enhanced images from the lung bases to the pubic symphysis using 100 ml Isovue 370 intravenous contrast material with coronal and sagittal re-formations. Comparison: None. Findings: Lung bases are clear. Visualized heart and pericardium normal. No evidence for solid organ injury. Liver, spleen, pancreas, bilateral adrenal glands and kidneys are relatively normal. 3 mm nonobstructing right renal calculus and mild age-related bilateral renal cortical thinning appreciated. Evidence of prior cholecystectomy and gastric bypass surgery noted. No bowel obstruction or acute inflammatory process. Normal terminal ileum and appendix identified in the right lower quadrant. Sigmoid diverticulosis noted without acute diverticulitis. Pelvis demonstrates normal bladder and uterus/adnexa. No pelvic fluid or ascites. No free air. No adenopathy. Atherosclerotic changes of the aorta and vasculature noted without aneurysm or dissection. Musculoskeletal structures demonstrate age-related changes without evidence for acute trauma/injury. Impression: 1. No evidence for acute trauma/injury or pathology. 2. 3 mm nonobstructing right renal calculus and bilateral renal cortical thinning suggesting age-related changes. 3. Prior cholecystectomy and gastric bypass surgery. 4. Sigmoid diverticulosis without acute diverticulitis. 5. No ascites, free air, adenopathy or focal inflammatory changes. Electronically Signed by Wilfrid Caballero MD 07/14/2018 08:29 P
[2018-07-14 20:52] VITALS: BP 124/58
== END 2018-07-14 21:04 | disposition home or self-care (01) ==
LOC: M ED 17:35
DX: S16.1XXA Strain of muscle, fascia and tendon at neck level, initial encounter (principal); S40.211A Abrasion of right shoulder, initial encounter; S20.229A Contusion of unspecified back wall of thorax, initial encounter; S20.219A Contusion of unspecified front wall of thorax, initial encounter; S09.90XA Unspecified injury of head, initial encounter; V43.52XA Car driver injured in collision with other type car in traffic accident, initial encounter; Y92.9 Unspecified place or not applicable; Y93.9 Activity, unspecified; Y99.9 Unspecified external cause status; I10 Essential (primary) hypertension; F32.9 Major depressive disorder, single episode, unspecified; N20.0 Calculus of kidney; K57.32 Diverticulitis of large intestine without perforation or abscess without bleeding; Z98.84 Bariatric surgery status; Z87.891 Personal history of nicotine dependence; Z79.899 Other long term (current) drug therapy
CPT/HCPCS: 70450; 71260; 72125; 74177; 80048; 80076; 83690; 85025; 85610; 85730; 96360; 96361; 99284; Q9967

== ENCOUNTER 2018-10-10 07:54 | Outpatient (RCR) | payer OTHER ==
[~2018-10-10 07:54] MED LIST changes: +METO50TA7 PO
== END 2018-10-14 ==
LOC: M PT 07:54
PROVIDERS: ATTEND Nurse Practitioner Family
DX: M54.6 Pain in thoracic spine (principal); M54.2 Cervicalgia; M54.5 Low back pain

== ENCOUNTER → 2018-11-14 | Outpatient (RCR) | payer OTHER | LOC: M PT 10-16 14:11 | PROVIDERS: ATTEND Nurse Practitioner Family | DX: Z51.89 Encounter for other specified aftercare (principal); M54.2 Cervicalgia; M54.5 Low back pain; M54.6 Pain in thoracic spine ==

== ENCOUNTER → 2018-11-19 | Outpatient (REF) | payer OTHER ==
[2018-11-19 10:23] LABS: HEMATOCRIT 44.1 % (36.0-47.0); HEMOGLOBIN 14.3 g/dl (12.0-15.5); MEAN CORPUSCULAR HEMOGLOBIN 32.1 pg (27.0-33.0); MEAN CORPUSCULAR HGB CONC 32.4 g/dl (32.0-36.5); MEAN CORPUSCULAR VOLUME 99.1 fl (80.0-96.0); PLATELET COUNT, AUTOMATED 222 10^3/uL (150-450); RED BLOOD COUNT 4.45 10^6/uL (4.00-5.40)
[2018-11-19 10:43] LABS: BLOOD UREA NITROGEN 13 MG/DL (7-18); CALCIUM LEVEL 9.3 MG/DL (8.8-10.2); CARBON DIOXIDE LEVEL 27 MEQ/L (21-32); CHLORIDE LEVEL 111 MEQ/L (98-107); CHOLESTEROL LEVEL 223 MG/DL (<200); CHOLESTEROL RISK RATIO 3.378 (<5); CREATININE FOR GFR 0.63 MG/DL (0.55-1.30); GLOMERULAR FILTRATION RATE > 60.0 (>45); GLUCOSE, FASTING 98 MG/DL (70-100); HDL CHOLESTEROL 66 MG/DL (>40); LDL CHOLESTEROL 144 MG/DL (<100); NON-HDL-C 157 MG/DL; POTASSIUM SERUM 4.3 MEQ/L (3.5-5.1); SODIUM LEVEL 144 MEQ/L (136-145); TRIGLYCERIDES LEVEL 66 MG/DL (<150)
[2018-11-19 11:31] LABS: TOTAL 25(OH) VITAMIN D 27.4 NG/ML (30.0-100.0)
== END ==
LOC: M SFHCPLAZ 07:43
PROVIDERS: ATTEND Nurse Practitioner Family
DX: I10 Essential (primary) hypertension (principal); E78.49 Other hyperlipidemia; E55.9 Vitamin D deficiency, unspecified; D50.9 Iron deficiency anemia, unspecified

== ENCOUNTER → 2018-12-05 | Outpatient (CLI) | payer OTHER ==
--- NOTE | 2018-12-05 09:59 | REPMRS ---
Patient History The patient states she has not had a clinical breast exam in over a year. Patient is postmenopausal. Family history of colorectal cancer at age 50 or over in maternal grandfather. Benign stereotactic core biopsy of the right breast, 2006. 3D TOMOSYNTHESIS WAS PERFORMED. The [facility] lifetime risk for breast cancer is 6.5%. Digital Woman Screen Mammo: December 05, 2018 - Exam #: [id number] Bilateral CC and MLO view(s) were taken. Technologist: Sonja Bucio Technologist Prior study comparison: September 06, 2017, digital woman screen mammo performed at [facility]. September 02, 2016, digital woman screen mammo performed at [facility]. FINDINGS: The breast tissue is heterogeneously dense. This may lower the sensitivity of mammography. There has been no change in the appearance of the mammogram from the prior studies. There is a moderate amount of residual fibroglandular tissue which is fairly symmetric. There is no interval development of dominant mass, areas of architectural distortion, or clustered microcalcification typical of malignancy. Assessment: BI-RADS/ACR category 1 mammogram. Negative Mammogram. Recommendation Routine screening mammogram in 1 year (for women over age 40). This mammogram was interpreted with the aid of an FDA-approved computer-aided dectection system. Electronically Signed By: Silvestre Armendariz MD 12/05/18 0958
== END ==
LOC: M WHC 08:07
PROVIDERS: ATTEND Nurse Practitioner Family
DX: Z12.31 Encounter for screening mammogram for malignant neoplasm of breast (principal)

== ENCOUNTER 2018-12-12 08:00 | Outpatient (RCR) | payer OTHER | END 2018-12-15 | LOC: M PT 08:00 | PROVIDERS: ATTEND Nurse Practitioner Family | DX: Z51.89 Encounter for other specified aftercare (principal); M54.6 Pain in thoracic spine; M54.5 Low back pain; M54.2 Cervicalgia ==

== ENCOUNTER 2019-01-11 14:30 | Outpatient (RCR) | payer OTHER | END 2019-01-14 | LOC: M PT 14:30 | PROVIDERS: ATTEND Nurse Practitioner Family | DX: Z51.89 Encounter for other specified aftercare (principal); M54.6 Pain in thoracic spine; M54.2 Cervicalgia; M54.5 Low back pain ==

== ENCOUNTER 2019-02-13 08:00 | Outpatient (RCR) | payer OTHER | END 2019-02-14 | LOC: M PT 08:00 | PROVIDERS: ATTEND Nurse Practitioner Family | DX: M54.6 Pain in thoracic spine (principal); M54.2 Cervicalgia; M54.5 Low back pain ==

== ENCOUNTER 2019-03-06 08:00 | Outpatient (RCR) | payer OTHER | END 2019-03-16 | LOC: M PT 08:00 | PROVIDERS: ATTEND Nurse Practitioner Family | DX: M54.6 Pain in thoracic spine (principal); M54.2 Cervicalgia; M54.5 Low back pain ==

== ENCOUNTER 2019-04-08 14:30 | Outpatient (RCR) | payer OTHER | END 2019-04-16 | LOC: M PT 14:30 | PROVIDERS: ATTEND Nurse Practitioner Family | DX: M54.6 Pain in thoracic spine (principal); M54.2 Cervicalgia; M54.5 Low back pain ==

== ENCOUNTER 2019-04-22 14:20 | Outpatient (RCR) | payer OTHER ==
[~2019-04-22 14:20] MED LIST changes: +ZONI50CA11; -ZONI50CA3
== END 2019-05-17 ==
LOC: M PT 14:20
PROVIDERS: ATTEND Nurse Practitioner Family
DX: M54.6 Pain in thoracic spine (principal); M54.5 Low back pain; M54.2 Cervicalgia

== ENCOUNTER → 2020-03-04 | Outpatient (CLI) | payer OTHER ==
--- NOTE | 2020-03-04 09:35 | REPMRS ---
Patient History The patient states she has not had a clinical breast exam in over a year. Family history of colorectal cancer at age 50 or over in maternal grandfather. Benign stereotactic core biopsy of the right breast, 2006. 3D TOMOSYNTHESIS WAS PERFORMED. The [facility] lifetime risk for breast cancer is 6.3%. Volpara breast density c. Digital Woman Screen Mammo: March 04, 2020 - Exam #: [id number] Bilateral CC and MLO view(s) were taken. Technologist: Zoila Jorgensen, Technologist Prior study comparison: December 05, 2018, bilateral digital woman screen mammo performed at [facility]. September 06, 2017, digital woman screen mammo performed at [facility]. FINDINGS: There are scattered fibroglandular densities. There is a fairly symmetric fibroglandular pattern in both breasts. There has been no interval development of masses, areas of architectural distortion or clusters of microcalcifications typical of malignancy. There is a stable smoothly marginated nodule in the upper outer quadrant of the right breast anteriorly with a biopsy clip at the anterior margin, status post prior benign biopsy. No significant changes when compared with prior studies. Assessment: BI-RADS/ACR category 2 mammogram. Benign Findings. Recommendation Routine screening mammogram of both breasts in 1 year (for women over age 40). This mammogram was interpreted with the aid of an FDA-approved computer-aided dectection system. Electronically Signed By: Silvestre Armendariz MD 03/04/20 0934
== END ==
LOC: M WHC 07:22
PROVIDERS: ATTEND Nurse Practitioner Adult Health
DX: Z12.31 Encounter for screening mammogram for malignant neoplasm of breast (principal); Z97.8 Presence of other specified devices; N63.11 Unspecified lump in the right breast, upper outer quadrant; Z86.018 Personal history of other benign neoplasm

== ENCOUNTER 2020-07-21 14:33 | Emergency (ER) | payer OTHER ==
[~2020-07-21] VITALS: Ht 154.9 cm; Wt 67.5 kg
[2020-07-21] MEDS ORDERED: HYDR-3713 (14:49)
[2020-07-21] MEDS ORDERED: ZONI100C17 (14:49)
--- NOTE | 2020-07-21 15:10 | REP ---
INDICATION: neuro symptoms. COMPARISON: None. TECHNIQUE: Axial CT images with multiplanar reformations. FINDINGS: No acute bleed or acute large vessel territorial infarct. Ventricles, cisterns and sulci within normal limits. No mass effect or midline shift. No abnormal fluid collections. Paranasal sinuses and mastoid air cells are clear. IMPRESSION: No acute findings. <Electronically signed by Hadley Burgos > 07/21/20 [id number]
[2020-07-21] MEDS ORDERED: ACETAMINOPHEN 500 MG TAB PO ONE (15:25)
[2020-07-21 15:41] LABS: BASO % 0.7 % (0.0-1.0); EOS # 0.1 10^3/uL (0.0-0.5); EOS % 2.3 % (0.0-3.0); HEMATOCRIT 41.4 % (36.0-47.0); HEMOGLOBIN 13.7 g/dl (12.0-15.5); LYMPH # 1.8 10^3/uL (1.5-5.0); LYMPH % 31.6 % (24.0-44.0); MEAN CORPUSCULAR HEMOGLOBIN 31.9 pg (27.0-33.0); MEAN CORPUSCULAR HGB CONC 33.1 g/dl (32.0-36.5); MEAN CORPUSCULAR VOLUME 96.3 fl (80.0-96.0); MONO # 0.4 10^3/uL (0.0-0.8); MONO % 7.1 % (2.0-8.0); NEUTROPHILS # 3.3 10^3/uL (1.5-8.5); NEUTROPHILS % 58.1 % (36.0-66.0); PLATELET COUNT, AUTOMATED 203 10^3/uL (150-450); WHITE BLOOD COUNT 5.6 10^3/uL (4.0-10.0)
--- NOTE | 2020-07-21 15:42 | REP ---
INDICATION: CVA. COMPARISON: 08/07/2012. TECHNIQUE: SINGLE PORTABLE AP VIEW OF THE CHEST WAS PERFORMED. FINDINGS: THERE IS NO ACUTE INFILTRATE OR PULMONARY EDEMA. LUNGS ARE CLEAR. HEART IS NOT SIGNIFICANTLY ENLARGED. There is mild calcification and tortuosity of thoracic aorta. The mediastinal silhouette is otherwise unremarkable.. THE VISUALIZED OSSEOUS STRUCTURES ARE INTACT. IMPRESSION: NO ACUTE PULMONARY DISEASE. <Electronically signed by Silvestre Armendariz > 07/21/20 [id number]
[2020-07-21 16:13] LABS: CPK CREATINE PHOSPHOKINASE 69 U/L (26-192); TROPONIN I < 0.02 NG/ML (< 0.10)
[2020-07-21] MEDS ORDERED: METOCLOPRAMIDE INJ 10MG/2ML VIAL (J2765 PER 1) IV ONE (17:05)
--- NOTE | 2020-07-21 18:02 | ECGEPIP ---
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
[2020-07-21 20:25] VITALS: BP 112/52
--- NOTE | 2020-07-21 21:07 | REPVR ---
PROCEDURE INFORMATION: Exam: MR Head Without Contrast Exam date and time: 07/21/2020 7:54 PM Age: 64 years old Clinical indication: Altered mental status/memory loss; Confusion or disorientation; Patient HX: Weakness in the lue and confusion that has since subsided; Additional info: Paresthesia left ue/face TECHNIQUE: Imaging protocol: MR of the head without contrast. COMPARISON: CT Head without contrast 07/21/2020 3:00 PM FINDINGS: Brain: There is a 4 x 6 x 5 mm lipoma along the inferior medial surface of the right tentorial leaflet. No mass effect. No acute infarct. No hemorrhage. No significant white matter disease. No edema. No mass or midline shift. Cerebral ventricles: Normal. No ventriculomegaly. Bones/joints: Unremarkable. Paranasal sinuses: Normal as visualized. No acute sinusitis. Mastoid air cells: Normal as visualized. No mastoid effusion. Orbits: Unremarkable. Soft tissues: Unremarkable. IMPRESSION: 1. Incidental small benign lipoma along the medial surface of the right tentorial leaflet. 2. Otherwise unremarkable brain MRI. Electronically signed by: Marco Hernández On 07/21/2020 21:07:48 PM
--- NOTE | 2020-07-21 21:10 | REPVR ---
PROCEDURE INFORMATION: Exam: MRA Head Without Contrast; Arteriography Exam date and time: 07/21/2020 7:54 PM Age: 64 years old Clinical indication: Patient HX: Weakness in the lue and confusion that has since subsided; Additional info: Paresthesia left ue/face TECHNIQUE: Imaging protocol: Magnetic resonance angiography head without contrast. Exam focused on the arteries. COMPARISON: CT Head without contrast 07/21/2020 3:00 PM FINDINGS: ANTERIOR CIRCULATION: Right internal carotid artery: Intracranial segment is patent with no significant stenosis. No aneurysm. Right middle cerebral artery: No occlusion or significant stenosis. No aneurysm. Right anterior cerebral artery: No occlusion or significant stenosis. No aneurysm. Left internal carotid artery: Intracranial segment is patent with no significant stenosis. No aneurysm. Left middle cerebral artery: No occlusion or significant stenosis. No aneurysm. Left anterior cerebral artery: No occlusion or significant stenosis. No aneurysm. POSTERIOR CIRCULATION: Right vertebral artery: No occlusion or significant stenosis. No aneurysm. Left vertebral artery: No occlusion or significant stenosis. No aneurysm. Basilar artery: No occlusion or significant stenosis. No aneurysm. Right posterior cerebral artery: origin of the right CUSTOMER OPERATIONS REPRESENTATIVE without significant stenosis or occlusion. Left posterior cerebral artery: No occlusion or significant stenosis. No aneurysm. IMPRESSION: Unremarkable MRA. No significant stenosis, aneurysm, or vascular occlusion. Electronically signed by: Marco Hernández On 07/21/2020 21:11:12 PM
== END 2020-07-21 20:30 | disposition left against medical advice (07) ==
LOC: M ED 14:33
DX: I63.9 Cerebral infarction, unspecified (principal); G45.9 Transient cerebral ischemic attack, unspecified; M19.90 Unspecified osteoarthritis, unspecified site; G43.909 Migraine, unspecified, not intractable, without status migrainosus; Z98.84 Bariatric surgery status; F17.200 Nicotine dependence, unspecified, uncomplicated; D17.79 Benign lipomatous neoplasm of other sites
CPT/HCPCS: 36415; 70450; 70544; 70551; 71045; 82550; 82553; 85025; 85730; 93005; 93041; 94760; 96374; 99285; J2765

== ENCOUNTER → 2020-08-25 | Outpatient (CLI) | payer OTHER ==
[~2020-08-25] MED LIST changes: +HYDR-3713; +ZONI100C17
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
== END ==
LOC: M PAIN 08:30
PROVIDERS: ATTEND Nurse Practitioner Family
DX: M79.18 Myalgia, other site (principal); M47.812 Spondylosis without myelopathy or radiculopathy, cervical region; D50.9 Iron deficiency anemia, unspecified; G47.00 Insomnia, unspecified; Z86.59 Personal history of other mental and behavioral disorders; Z98.84 Bariatric surgery status; Z87.891 Personal history of nicotine dependence; Z88.5 Allergy status to narcotic agent; Z88.6 Allergy status to analgesic agent; Z88.8 Allergy status to other drugs, medicaments and biological substances; Z79.899 Other long term (current) drug therapy

== ENCOUNTER → 2020-08-28 | Outpatient (CLI) | payer OTHER | LOC: M LABSMTC 13:01 | PROVIDERS: ATTEND Anesthesiology | DX: Z20.822 Contact with and (suspected) exposure to COVID-19 (principal) ==

== ENCOUNTER → 2020-09-02 | Outpatient (CLI) | payer OTHER ==
[~2020-09-02] MED LIST changes: +BUPIVACAINE HCL 0.25% 10ML VIAL As Ordered ONE; +BUPIVACAINE HCL 0.25% 30ML VIAL As Ordered ONE; +ONDANSETRON 4 MG ORAL DISINTEGRATING TAB As Ordered ONE; +TRIAMCINOLONE ACETONIDE SUSP 40 MG/ML VIAL (J3301) As Ordered ONE; +diazePAM 5MG TABLET As Ordered ONE; +oxyCODONE 5MG TAB As Ordered ONE
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
== END ==
LOC: M PAIN 08:30
PROVIDERS: ATTEND Anesthesiology
DX: M79.18 Myalgia, other site (principal); D50.9 Iron deficiency anemia, unspecified; G47.00 Insomnia, unspecified; Z86.59 Personal history of other mental and behavioral disorders; Z98.84 Bariatric surgery status; Z87.891 Personal history of nicotine dependence; Z88.5 Allergy status to narcotic agent; Z88.6 Allergy status to analgesic agent; Z79.899 Other long term (current) drug therapy
CPT/HCPCS: 20553; J3301; Q0162

== ENCOUNTER → 2020-09-23 | Outpatient (CLI) | payer OTHER ==
[~2020-09-23] MED LIST changes: -BUPIVACAINE HCL 0.25% 10ML VIAL As Ordered ONE; -BUPIVACAINE HCL 0.25% 30ML VIAL As Ordered ONE; -ONDANSETRON 4 MG ORAL DISINTEGRATING TAB As Ordered ONE; -TRIAMCINOLONE ACETONIDE SUSP 40 MG/ML VIAL (J3301) As Ordered ONE; -diazePAM 5MG TABLET As Ordered ONE; -oxyCODONE 5MG TAB As Ordered ONE
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
== END ==
LOC: M PAIN 09:15
PROVIDERS: ATTEND Nurse Practitioner Family
DX: G89.29 Other chronic pain (principal); M50.10 Cervical disc disorder with radiculopathy, unspecified cervical region; D50.9 Iron deficiency anemia, unspecified; G47.00 Insomnia, unspecified; Z86.59 Personal history of other mental and behavioral disorders; Z87.891 Personal history of nicotine dependence; Z88.5 Allergy status to narcotic agent; Z88.6 Allergy status to analgesic agent; Z88.8 Allergy status to other drugs, medicaments and biological substances; Z79.899 Other long term (current) drug therapy

== ENCOUNTER → 2020-10-14 | Outpatient (CLI) | payer OTHER ==
--- NOTE | 2020-10-14 09:32 | REPVR ---
PROCEDURE INFORMATION: Exam: MR Cervical Spine Without Contrast Exam date and time: 10/14/2020 8:52 AM Age: 64 years old Clinical indication: Cervical disc disorder with radiculopathy TECHNIQUE: Imaging protocol: Multiplanar magnetic resonance images of the cervical spine without contrast. COMPARISON: CT Spine,cervical w/o contrast 07/14/2018 8:06 PM FINDINGS: Vertebrae: Unremarkable. Spinal cord: Normal signal. Mild cord deformity at C4/5. C2-C3: No significant disc disease. No significant spinal stenosis. C3-C4: There is degenerative disc disease including disc space narrowing and dessication. There is a moderate disc/osteophyte complex that flattens the ventral thecal sac. There is a moderate left subarticular/foraminal disc protrusion. There is mild left-sided neuroforaminal narrowing. There is mild spinal canal stenosis. C4-C5: There is degenerative disc disease including disc space narrowing and dessication. There is a moderate disc/osteophyte complex, partial toward the right, that flattens the ventral thecal sac and compromises the right neural foramen. There is bilateral uncovertebral joint arthropathy, worse on the right. There is moderate bilateral neural foraminal narrowing, right worse than left. There is effacement of the ventral subarachnoid space and indentation of the ventral cervical cord. There is moderate spinal canal stenosis. C5-C6: There is degenerative disc disease including disc space narrowing and dessication. There is a moderate disc/osteophyte complex that flattens the ventral thecal sac. There is moderate bilateral uncovertebral joint arthropathy. There is moderate bilateral neural foraminal narrowing. There is mild/moderate spinal canal stenosis. C6-C7: There is degenerative disc disease including disc space narrowing and dessication. There is a moderate disc/osteophyte complex that flattens the ventral thecal sac. There is a small central disc protrusion. There is moderate bilateral uncovertebral joint arthropathy. There is moderate bilateral neural foraminal narrowing. There is mild/moderate spinal canal stenosis. C7-T1: No significant disc disease. No significant spinal stenosis. T1-T2: There is a 1.3 x 1.1 cm right T1/2 foraminal nerve sheath cyst. Soft tissues: Unremarkable. IMPRESSION: 1. Moderate multilevel degenerative changes with variable degrees of spinal canal and neuroforaminal narrowing. Please see details above. 2. There is a 1.3 x 1.1 cm right T1/2 foraminal nerve sheath cyst. Electronically signed by: Price Galvan On 10/14/2020 09:31:42 AM
== END ==
LOC: M RAD 07:35
PROVIDERS: ATTEND Nurse Practitioner Family
DX: G89.29 Other chronic pain (principal); M50.31 Other cervical disc degeneration, high cervical region; M50.321 Other cervical disc degeneration at C4-C5 level; M50.322 Other cervical disc degeneration at C5-C6 level; M50.323 Other cervical disc degeneration at C6-C7 level; G96.191 Perineural cyst

== ENCOUNTER → 2020-10-27 | Outpatient (CLI) | payer OTHER ==
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
== END ==
LOC: M PAIN 11:00
PROVIDERS: ATTEND Nurse Practitioner Family
DX: M50.10 Cervical disc disorder with radiculopathy, unspecified cervical region (principal); G89.29 Other chronic pain; F50.9 Eating disorder, unspecified; Z86.59 Personal history of other mental and behavioral disorders; Z87.891 Personal history of nicotine dependence; Z88.5 Allergy status to narcotic agent; Z88.6 Allergy status to analgesic agent; Z88.8 Allergy status to other drugs, medicaments and biological substances; Z79.899 Other long term (current) drug therapy

== ENCOUNTER → 2020-11-13 | Outpatient (CLI) | payer OTHER | LOC: M LABSMTC 12:12 | PROVIDERS: ATTEND Anesthesiology | DX: Z01.812 Encounter for preprocedural laboratory examination (principal); Z20.822 Contact with and (suspected) exposure to COVID-19 ==

== ENCOUNTER → 2020-11-18 | Outpatient (CLI) | payer OTHER ==
[~2020-11-18] MED LIST changes: +ISOVUE-M 300 61% 15ML VIAL As Ordered ONE; +LIDOCAINE 1% SDV 30ML VIAL As Ordered ONE; +NORCO, ANEXSIA 5/325MG TABLET (HYDROcodone/ACETAMINOPHEN) As Ordered ONE; +ONDANSETRON 4 MG ORAL DISINTEGRATING TAB As Ordered ONE; +diazePAM 2 MG TAB As Ordered ONE; +methylPREDNISolone SUSP 40MG/ML 1ML VIAL (DEPO MEDROL) As Ordered ONE
--- NOTE | 2020-11-18 14:24 | REP ---
INDICATION: CERVICAL EPIDURAL STEROID INJECTION. COMPARISON: None. TECHNIQUE: Three C-arm views cervical spine. FINDINGS: A needle is seen at the cervicothoracic junction. IMPRESSION: 17 seconds of fluoroscopy time was utilized. <Electronically signed by Silvestre Armendariz > 11/18/20 0281
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
== END ==
LOC: M PAIN 10:00
PROVIDERS: ATTEND Anesthesiology
DX: M50.10 Cervical disc disorder with radiculopathy, unspecified cervical region (principal); G47.30 Sleep apnea, unspecified; D50.9 Iron deficiency anemia, unspecified; Z86.59 Personal history of other mental and behavioral disorders; Z87.891 Personal history of nicotine dependence; Z88.5 Allergy status to narcotic agent; Z88.6 Allergy status to analgesic agent; Z88.8 Allergy status to other drugs, medicaments and biological substances; Z79.899 Other long term (current) drug therapy
CPT/HCPCS: 62321; J1030; Q0162; Q9967

== ENCOUNTER → 2021-01-06 | Outpatient (CLI) | payer OTHER ==
[~2021-01-06] MED LIST changes: -ISOVUE-M 300 61% 15ML VIAL As Ordered ONE; -LIDOCAINE 1% SDV 30ML VIAL As Ordered ONE; -NORCO, ANEXSIA 5/325MG TABLET (HYDROcodone/ACETAMINOPHEN) As Ordered ONE; -ONDANSETRON 4 MG ORAL DISINTEGRATING TAB As Ordered ONE; -diazePAM 2 MG TAB As Ordered ONE; -methylPREDNISolone SUSP 40MG/ML 1ML VIAL (DEPO MEDROL) As Ordered ONE
[2021-01-06 10:29] LABS: HEMATOCRIT 41.8 % (36.0-47.0); HEMOGLOBIN 13.3 g/dl (12.0-15.5); LYMPH % 29.5 % (24.0-44.0); MEAN CORPUSCULAR HEMOGLOBIN 31.1 pg (27.0-33.0); MEAN CORPUSCULAR HGB CONC 31.8 g/dl (32.0-36.5); MEAN CORPUSCULAR VOLUME 97.9 fl (80.0-96.0); MONO % 6.8 % (2.0-8.0); NEUTROPHILS % 60.7 % (36.0-66.0); PLATELET COUNT, AUTOMATED 207 10^3/uL (150-450); RED BLOOD COUNT 4.27 10^6/uL (4.00-5.40); WHITE BLOOD COUNT 4.9 10^3/uL (4.0-10.0)
[2021-01-06 10:30] LABS: BASO # 0.1 10^3/uL (0.0-0.2); EOS # 0.1 10^3/uL (0.0-0.5); LYMPH # 1.4 10^3/uL (1.5-5.0); MONO # 0.3 10^3/uL (0.0-0.8)
[2021-01-06 11:03] LABS: ALBUMIN 3.4 GM/DL (3.2-5.2); ALT/SGPT 14 U/L (12-78); BILIRUBIN,TOTAL 0.4 MG/DL (0.2-1.0); BLOOD UREA NITROGEN 13 MG/DL (7-18); CALCIUM LEVEL 9.2 MG/DL (8.8-10.2); CARBON DIOXIDE LEVEL 27 MEQ/L (21-32); CHLORIDE LEVEL 113 MEQ/L (98-107); CHOLESTEROL LEVEL 263 MG/DL (<200); CHOLESTEROL RISK RATIO 3.984 (<5); CREATININE FOR GFR 0.48 MG/DL (0.55-1.30); GLOMERULAR FILTRATION RATE > 60.0 (>45); GLUCOSE, FASTING 80 MG/DL (70-100); HDL CHOLESTEROL 66 MG/DL (>40); IRON (FE) 105 UG/DL (50-170); LDL CHOLESTEROL 184 MG/DL (<100); NON-HDL-C 197 MG/DL; POTASSIUM SERUM 4.6 MEQ/L (3.5-5.1); SODIUM LEVEL 144 MEQ/L (136-145); TOTAL IRON BINDING CAPACITY 300 UG/DL (250-450); TOTAL PROTEIN 5.9 GM/DL (6.4-8.2); TRIGLYCERIDES LEVEL 63 MG/DL (<150)
[2021-01-06 11:04] LABS: TOTAL 25(OH) VITAMIN D 21.4 NG/ML (30.0-100.0)
== END ==
LOC: M PLALAB 08:19
PROVIDERS: ATTEND Nurse Practitioner Adult Health
DX: I10 Essential (primary) hypertension (principal); E55.9 Vitamin D deficiency, unspecified; D50.9 Iron deficiency anemia, unspecified; E78.49 Other hyperlipidemia

== ENCOUNTER → 2021-02-01 | Outpatient (CLI) | payer OTHER | LOC: M PAIN 11:30 | PROVIDERS: ATTEND Anesthesiology | DX: M79.18 Myalgia, other site (principal); D50.9 Iron deficiency anemia, unspecified; Z98.84 Bariatric surgery status; Z86.59 Personal history of other mental and behavioral disorders; Z87.891 Personal history of nicotine dependence; Z88.5 Allergy status to narcotic agent; Z88.6 Allergy status to analgesic agent; Z88.8 Allergy status to other drugs, medicaments and biological substances; Z79.891 Long term (current) use of opiate analgesic; Z79.899 Other long term (current) drug therapy ==

== ENCOUNTER → 2021-02-25 | Outpatient (CLI) | payer OTHER | LOC: M LABSMTC 11:11 | PROVIDERS: ATTEND Anesthesiology | DX: Z01.812 Encounter for preprocedural laboratory examination (principal); Z20.822 Contact with and (suspected) exposure to COVID-19 ==

== ENCOUNTER → 2021-03-02 | Outpatient (CLI) | payer OTHER ==
[~2021-03-02] MED LIST changes: +BUPIVACAINE HCL 0.25% 10ML VIAL As Ordered ONE; +BUPIVACAINE HCL 0.25% 30ML VIAL As Ordered ONE; +NORCO, ANEXSIA 5/325MG TABLET (HYDROcodone/ACETAMINOPHEN) As Ordered ONE; +ONDANSETRON 4 MG ORAL DISINTEGRATING TAB As Ordered ONE; +TRIAMCINOLONE ACETONIDE SUSP 40 MG/ML VIAL (J3301) As Ordered ONE; +diazePAM 2 MG TAB As Ordered ONE
== END ==
LOC: M PAIN 13:20
PROVIDERS: ATTEND Anesthesiology
DX: M79.18 Myalgia, other site (principal); G47.30 Sleep apnea, unspecified; D50.9 Iron deficiency anemia, unspecified; Z86.59 Personal history of other mental and behavioral disorders; Z87.891 Personal history of nicotine dependence; Z88.5 Allergy status to narcotic agent; Z88.6 Allergy status to analgesic agent; Z88.8 Allergy status to other drugs, medicaments and biological substances; Z79.891 Long term (current) use of opiate analgesic; Z79.899 Other long term (current) drug therapy
CPT/HCPCS: 20552; J3301; Q0162

== ENCOUNTER → 2021-06-20 | Outpatient (CLI) | payer OTHER ==
[~2021-06-20] MED LIST changes: -BUPIVACAINE HCL 0.25% 10ML VIAL As Ordered ONE; -BUPIVACAINE HCL 0.25% 30ML VIAL As Ordered ONE; -NORCO, ANEXSIA 5/325MG TABLET (HYDROcodone/ACETAMINOPHEN) As Ordered ONE; -ONDANSETRON 4 MG ORAL DISINTEGRATING TAB As Ordered ONE; -TRIAMCINOLONE ACETONIDE SUSP 40 MG/ML VIAL (J3301) As Ordered ONE; -diazePAM 2 MG TAB As Ordered ONE
== END ==
LOC: M RAD 08:42
PROVIDERS: ATTEND Psychiatry & Neurology Neurology
DX: M25.511 Pain in right shoulder (principal); M19.011 Primary osteoarthritis, right shoulder; M62.81 Muscle weakness (generalized)

== ENCOUNTER → 2021-08-25 | Outpatient (CLI) | payer OTHER ==
[~2021-08-25] MED LIST changes: -ZONI100C17; +ZONI100C67
[2021-08-25 10:42] LABS: HEMATOCRIT 38.5 % (36.0-47.0); HEMOGLOBIN 12.3 g/dl (12.0-15.5); MEAN CORPUSCULAR HEMOGLOBIN 30.3 pg (27.0-33.0); MEAN CORPUSCULAR HGB CONC 31.9 g/dl (32.0-36.5); MEAN CORPUSCULAR VOLUME 94.8 fl (80.0-96.0); PLATELET COUNT, AUTOMATED 254 10^3/uL (150-450); RED BLOOD COUNT 4.06 10^6/uL (4.00-5.40); WHITE BLOOD COUNT 4.9 10^3/uL (4.0-10.0)
[2021-08-25 11:19] LABS: ALBUMIN 3.6 GM/DL (3.2-5.2); ALT/SGPT 13 U/L (12-78); BILIRUBIN,TOTAL 0.4 MG/DL (0.2-1.0); BLOOD UREA NITROGEN 12 MG/DL (7-18); CALCIUM LEVEL 9.3 MG/DL (8.8-10.2); CARBON DIOXIDE LEVEL 27 MEQ/L (21-32); CHLORIDE LEVEL 112 MEQ/L (98-107); CHOLESTEROL LEVEL 253 MG/DL (<200); CHOLESTEROL RISK RATIO 3.373 (<5); CREATININE FOR GFR 0.59 MG/DL (0.55-1.30); GLOMERULAR FILTRATION RATE > 60.0 (>45); GLUCOSE, FASTING 87 MG/DL (70-100); HDL CHOLESTEROL 75 MG/DL (>40); IRON (FE) 36 UG/DL (50-170); LDL CHOLESTEROL 163 MG/DL (<100); NON-HDL-C 178 MG/DL; PERCENT SATURATION 8.9 % (13.2-45.0); POTASSIUM SERUM 5.1 MEQ/L (3.5-5.1); SODIUM LEVEL 141 MEQ/L (136-145); TOTAL IRON BINDING CAPACITY 404 UG/DL (250-450); TOTAL PROTEIN 6.3 GM/DL (6.4-8.2); TRIGLYCERIDES LEVEL 75 MG/DL (<150)
== END ==
LOC: M LAB 09:22
PROVIDERS: ATTEND Nurse Practitioner Adult Health
DX: E55.9 Vitamin D deficiency, unspecified (principal); I10 Essential (primary) hypertension; D50.9 Iron deficiency anemia, unspecified; E78.49 Other hyperlipidemia

== ENCOUNTER → 2022-06-10 | Outpatient (CLI) | payer OTHER, MEDICARE | LOC: M WUC 14:24 | PROVIDERS: ATTEND Nurse Practitioner Adult Health | DX: R09.89 Other specified symptoms and signs involving the circulatory and respiratory systems (principal); M47.9 Spondylosis, unspecified ==

== ENCOUNTER → 2022-06-16 | Outpatient (REF) | payer OTHER, MEDICARE | LOC: M SFHCPLAZ 13:24 | PROVIDERS: ATTEND Nurse Practitioner Adult Health | DX: R09.81 Nasal congestion (principal) ==

== ENCOUNTER → 2022-07-04 | Outpatient (CLI) | payer OTHER, MEDICARE ==
[2022-07-04 13:14] LABS: HEMATOCRIT 34.7 % (36.0-47.0); HEMOGLOBIN 10.1 g/dl (12.0-15.5); MEAN CORPUSCULAR HEMOGLOBIN 26.5 pg (27.0-33.0); MEAN CORPUSCULAR HGB CONC 29.1 g/dl (32.0-36.5); MEAN CORPUSCULAR VOLUME 91.1 fl (80.0-96.0); PLATELET COUNT, AUTOMATED 243 10^3/uL (150-450); RED BLOOD COUNT 3.81 10^6/uL (4.00-5.40); WHITE BLOOD COUNT 5.8 10^3/uL (4.0-10.0)
[2022-07-04 13:48] LABS: ALBUMIN 3.3 G/DL (3.2-5.2); ALKALINE PHOSPHATASE 82 U/L (46-116); ALT/SGPT 11 U/L (7.0-40); AST/SGOT 14 U/L (<34); BILIRUBIN,TOTAL 0.2 MG/DL (0.3-1.2); BLOOD UREA NITROGEN 16 MG/DL (9-23); CARBON DIOXIDE LEVEL 26 MMOL/L (20-31); CHLORIDE LEVEL 111 MMOL/L (98-107); CHOLESTEROL LEVEL 169 MG/DL (<200); CHOLESTEROL RISK RATIO 2.45 (<5); CREATININE FOR GFR 0.47 MG/DL (0.55-1.30); FERRITIN 3.8 NG/ML (7.3-270.7); GLOMERULAR FILTRATION RATE > 60.0 (>45); GLUCOSE, FASTING 94 MG/DL (74-106); HDL CHOLESTEROL 68.7 MG/DL (>40); IRON (FE) 16 UG/DL (50-170); LDL CHOLESTEROL 85.5 MG/DL (<100); NON-HDL-C 100.3 MG/DL; PERCENT SATURATION 4.5 % (13.2-45.0); POTASSIUM SERUM 3.8 MMOL/L (3.5-5.1); SODIUM LEVEL 143 MMOL/L (136-145); TOTAL IRON BINDING CAPACITY 353 UG/DL (250-425); TOTAL PROTEIN 5.7 G/DL (5.7-8.2); TRIGLYCERIDES LEVEL 74 MG/DL (<150); VITAMIN B12 LEVEL 698 PG/ML (211-911)
== END ==
LOC: M WUC 09:16
PROVIDERS: ATTEND Nurse Practitioner Adult Health
DX: I10 Essential (primary) hypertension (principal); Z98.84 Bariatric surgery status; E53.8 Deficiency of other specified B group vitamins; E78.49 Other hyperlipidemia

== ENCOUNTER → 2022-11-02 | Outpatient (CLI) | payer OTHER ==
[2022-11-02 14:35] LABS: HEMATOCRIT 31.6 % (36.0-47.0)
[2022-11-02 14:36] LABS: HEMATOCRIT 31.5 % (36.0-47.0); HEMOGLOBIN 9.1 g/dl (12.0-15.5); MEAN CORPUSCULAR HGB CONC 28.9 g/dl (32.0-36.5); MEAN CORPUSCULAR VOLUME 83.1 fl (80.0-96.0); PLATELET COUNT, AUTOMATED 246 10^3/uL (150-450); RED BLOOD COUNT 3.79 10^6/uL (4.00-5.40); WHITE BLOOD COUNT 5.4 10^3/uL (4.0-10.0)
[2022-11-02 15:03] LABS: TOTAL IRON BINDING CAPACITY 402 UG/DL (250-425)
[2022-11-02 15:04] LABS: ALBUMIN 3.6 G/DL (3.2-5.2); ALKALINE PHOSPHATASE 76 U/L (46-116); ALT/SGPT 10 U/L (7.0-40); AST/SGOT 9 U/L (<34); BILIRUBIN,TOTAL 0.3 MG/DL (0.3-1.2); BLOOD UREA NITROGEN 13 MG/DL (9-23); CALCIUM LEVEL 9.1 MG/DL (8.3-10.6); CARBON DIOXIDE LEVEL 26 MMOL/L (20-31); CHLORIDE LEVEL 110 MMOL/L (98-107); CHOLESTEROL LEVEL 187 MG/DL (<200); CHOLESTEROL RISK RATIO 2.85 (<5); CREATININE FOR GFR 0.57 MG/DL (0.55-1.30); FERRITIN 3.4 NG/ML (7.3-270.7); GLOMERULAR FILTRATION RATE > 60.0 (>45); GLUCOSE, FASTING 88 MG/DL (74-106); HDL CHOLESTEROL 65.4 MG/DL (>40); IRON (FE) 11 UG/DL (50-170); LDL CHOLESTEROL 104.2 MG/DL (<100); NON-HDL-C 121.6 MG/DL; PERCENT SATURATION 2.7 % (13.2-45.0); POTASSIUM SERUM 5.2 MMOL/L (3.5-5.1); SODIUM LEVEL 143 MMOL/L (136-145); TRIGLYCERIDES LEVEL 87 MG/DL (<150)
[2022-11-02 15:05] LABS: VITAMIN B12 LEVEL 406 PG/ML (211-911)
[2022-11-03 11:44] LABS: THYROID STIMULATING HORMONE 1.355 uIU/ML (0.55-4.78)
== END ==
LOC: M PLALAB 10:13
PROVIDERS: ATTEND Nurse Practitioner Adult Health
DX: Z98.84 Bariatric surgery status (principal); I10 Essential (primary) hypertension; E53.8 Deficiency of other specified B group vitamins; E55.9 Vitamin D deficiency, unspecified; E78.2 Mixed hyperlipidemia

== ENCOUNTER → 2023-02-05 | Outpatient (CLI) | payer MEDICARE ==
[2023-02-07 08:19] LABS: BLOOD UREA NITROGEN 13 MG/DL (7-21); CREATININE FOR GFR 0.5 MG/DL (0.7-1.5); GLOMERULAR FILTRATION RATE > 60.0 (>45)
== END ==
LOC: M LAB 10:05
PROVIDERS: ATTEND Physician Assistant Medical
DX: D50.9 Iron deficiency anemia, unspecified (principal)

== ENCOUNTER → 2023-02-08 | Outpatient (CLI) | payer MEDICARE ==
[~2023-02-08] MED LIST changes: +GLUCAGON INJ 1MG VIAL As Ordered ONE; +ISOVUE-370 76% 100ML VIAL As Ordered ONE; +NEULUMEX 0.1% SUSPENSION 450ML BOTTLE (FORMERLY VOLUMEN) As Ordered ONE
== END ==
LOC: M RAD 09:26
PROVIDERS: ATTEND Physician Assistant Medical
DX: R19.5 Other fecal abnormalities (principal); D50.9 Iron deficiency anemia, unspecified; Z80.0 Family history of malignant neoplasm of digestive organs
CPT/HCPCS: 74177; J1610; Q9967

== ENCOUNTER → 2023-02-16 | Outpatient (CLI) | payer MEDICARE ==
[~2023-02-16] MED LIST changes: -GLUCAGON INJ 1MG VIAL As Ordered ONE; -ISOVUE-370 76% 100ML VIAL As Ordered ONE; -NEULUMEX 0.1% SUSPENSION 450ML BOTTLE (FORMERLY VOLUMEN) As Ordered ONE
[2023-02-16 16:12] LABS: BASO # 0.1 10^3/uL (0.0-0.2); EOS # 0.1 10^3/uL (0.0-0.5); EOS % 1.8 % (0.0-3.0); HEMATOCRIT 40.1 % (36.0-47.0); HEMOGLOBIN 12.4 g/dl (12.0-15.5); LYMPH # 1.7 10^3/uL (1.5-5.0); LYMPH % 27.7 % (24.0-44.0); MEAN CORPUSCULAR HEMOGLOBIN 28.6 pg (27.0-33.0); MEAN CORPUSCULAR HGB CONC 30.9 g/dl (32.0-36.5); MEAN CORPUSCULAR VOLUME 92.6 fl (80.0-96.0); MONO # 0.4 10^3/uL (0.0-0.8); MONO % 6.2 % (2.0-8.0); NEUTROPHILS # 3.9 10^3/uL (1.5-8.5); PLATELET COUNT, AUTOMATED 234 10^3/uL (150-450); RED BLOOD COUNT 4.33 10^6/uL (4.00-5.40); WHITE BLOOD COUNT 6.1 10^3/uL (4.0-10.0)
[2023-02-16 16:34] LABS: LIPASE 40 U/L (12-53)
[2023-02-16 16:35] LABS: AMYLASE 61 U/L (30-118)
[2023-02-16 16:36] LABS: ALBUMIN 3.5 G/DL (3.2-5.2); ALKALINE PHOSPHATASE 80 U/L (46-116); ALT/SGPT 10 U/L (7.0-40); AST/SGOT 15 U/L (<34); BILIRUBIN,TOTAL 0.3 MG/DL (0.3-1.2); BLOOD UREA NITROGEN 13 MG/DL (9-23); CALCIUM LEVEL 9.2 MG/DL (8.3-10.6); CARBON DIOXIDE LEVEL 28 MMOL/L (20-31); CHLORIDE LEVEL 110 MMOL/L (98-107); CREATININE FOR GFR 0.48 MG/DL (0.55-1.30); GLOMERULAR FILTRATION RATE > 60.0 (>45); GLUCOSE, FASTING 86 MG/DL (74-106); IRON (FE) 25 UG/DL (50-170); POTASSIUM SERUM 4.9 MMOL/L (3.5-5.1); SODIUM LEVEL 144 MMOL/L (136-145); TOTAL PROTEIN 5.9 G/DL (5.7-8.2)
[2023-02-16 16:37] LABS: THYROID STIMULATING HORMONE 2.171 uIU/ML (0.55-4.78)
[2023-02-16 16:39] LABS: FERRITIN 10.8 NG/ML (7.3-270.7)
[2023-02-16 16:40] LABS: VITAMIN B12 LEVEL 398 PG/ML (211-911)
== END ==
LOC: M PLALAB 08:48
PROVIDERS: ATTEND Nurse Practitioner Adult Health
DX: Z00.00 Encounter for general adult medical examination without abnormal findings (principal); I10 Essential (primary) hypertension; R07.9 Chest pain, unspecified; F41.9 Anxiety disorder, unspecified; G43.909 Migraine, unspecified, not intractable, without status migrainosus; R30.0 Dysuria; Z28.21 Immunization not carried out because of patient refusal; M54.2 Cervicalgia; J30.2 Other seasonal allergic rhinitis; F17.200 Nicotine dependence, unspecified, uncomplicated; E55.9 Vitamin D deficiency, unspecified; E53.8 Deficiency of other specified B group vitamins; D50.9 Iron deficiency anemia, unspecified; R09.81 Nasal congestion; R19.5 Other fecal abnormalities; E78.2 Mixed hyperlipidemia; R53.83 Other fatigue; M54.50 Low back pain, unspecified; H92.03 Otalgia, bilateral; Z13.29 Encounter for screening for other suspected endocrine disorder; Z98.84 Bariatric surgery status; R06.9 Unspecified abnormalities of breathing

== ENCOUNTER → 2023-02-18 | Outpatient (CLI) | payer MEDICARE | LOC: M RAD 08:03 | PROVIDERS: ATTEND Nurse Practitioner Adult Health | DX: M54.50 Low back pain, unspecified (principal); M47.816 Spondylosis without myelopathy or radiculopathy, lumbar region ==

== ENCOUNTER 2023-03-31 07:30 | Outpatient (CLI) | payer MEDICARE, OTHER ==
[~2023-03-31] VITALS: Ht 154.9 cm; Wt 64.5 kg
[~2023-03-31 07:30] MED LIST changes: +IRON SUCROSE 25 MG in NS 23.75 ML IV ONE; +IRON SUCROSE 475 MG in NS 250 ML IV ONE
[2023-03-31 07:35] VITALS: BP 123/57; O2SAT 96
[2023-03-31] MEDS: IRON SUCROSE 500 MG in NS 250 ML OVER 4 HRS IV ONE (08:15)
[2023-03-31 09:30] VITALS: BP 120/58; O2SAT 99
[2023-03-31 10:30] VITALS: BP 112/57; O2SAT 100
[2023-03-31 11:30] VITALS: BP 107/55; O2SAT 98
[2023-03-31 12:25] VITALS: BP 129/58; O2SAT 98
== END 2023-03-31 12:25 | disposition home or self-care (01) ==
LOC: M INFU 07:30
PROVIDERS: ATTEND Nurse Practitioner Adult Health
DX: D50.9 Iron deficiency anemia, unspecified (principal)
CPT/HCPCS: 96365; 96366; J1756

== ENCOUNTER → 2023-05-22 | Outpatient (CLI) | payer MEDICARE, OTHER ==
[~2023-05-22] MED LIST changes: -IRON SUCROSE 25 MG in NS 23.75 ML IV ONE; -IRON SUCROSE 475 MG in NS 250 ML IV ONE
[2023-05-22 15:54] LABS: HEMATOCRIT 42.9 % (36.0-47.0); HEMOGLOBIN 13.8 g/dl (12.0-15.5); MEAN CORPUSCULAR HGB CONC 32.2 g/dl (32.0-36.5); MEAN CORPUSCULAR VOLUME 96.4 fl (80.0-96.0); PLATELET COUNT, AUTOMATED 206 10^3/uL (150-450); RED BLOOD COUNT 4.45 10^6/uL (4.00-5.40)
[2023-05-22 16:21] LABS: IRON (FE) 40 UG/DL (50-170)
[2023-05-22 16:22] LABS: ALBUMIN 3.3 G/DL (3.2-5.2); ALKALINE PHOSPHATASE 77 U/L (46-116); ALT/SGPT 10 U/L (7.0-40); AST/SGOT 12 U/L (<34); BILIRUBIN,TOTAL 0.3 MG/DL (0.3-1.2); BLOOD UREA NITROGEN 13 MG/DL (9-23); CALCIUM LEVEL 9.4 MG/DL (8.3-10.6); CARBON DIOXIDE LEVEL 26 MMOL/L (20-31); CHLORIDE LEVEL 110 MMOL/L (98-107); CREATININE FOR GFR 0.64 MG/DL (0.55-1.30); GLOMERULAR FILTRATION RATE > 60.0 (>45); GLUCOSE, FASTING 98 MG/DL (74-106); POTASSIUM SERUM 4.3 MMOL/L (3.5-5.1); SODIUM LEVEL 140 MMOL/L (136-145)
[2023-05-22 16:23] LABS: FERRITIN 21.6 NG/ML (7.3-270.7)
== END ==
LOC: M LAB 15:27
PROVIDERS: ATTEND Nurse Practitioner Adult Health
DX: I10 Essential (primary) hypertension (principal); Z98.84 Bariatric surgery status; R07.9 Chest pain, unspecified; F41.9 Anxiety disorder, unspecified; G43.909 Migraine, unspecified, not intractable, without status migrainosus; M54.2 Cervicalgia; F17.200 Nicotine dependence, unspecified, uncomplicated; J30.2 Other seasonal allergic rhinitis; E55.9 Vitamin D deficiency, unspecified; E53.8 Deficiency of other specified B group vitamins; D50.9 Iron deficiency anemia, unspecified; R19.5 Other fecal abnormalities; E78.2 Mixed hyperlipidemia; R53.83 Other fatigue; M54.50 Low back pain, unspecified

== ENCOUNTER → 2023-06-08 | Outpatient (REF) | payer MEDICARE, OTHER | LOC: M SFHCPLAZ 09:51 | PROVIDERS: ATTEND Nurse Practitioner Adult Health | DX: Z12.4 Encounter for screening for malignant neoplasm of cervix (principal) ==

== ENCOUNTER 2023-09-18 09:09 | Day surgery (SDC) | payer MEDICARE, OTHER ==
[~2023-09-18] VITALS: Ht 154.9 cm; Wt 68.5 kg
[~2023-09-18 09:09] MED LIST changes: +ADVA115A; +ALBU8.5H; +ATOR1TAB19 PO; +BUSP10TA PO; +CETI-24 PO; +FERR325T19 PO; +FLUTISP; +FURO20TA2 PO; +LOSA25TA13 PO; +MELO15TA28 PO; +NS 1,000 ML IV ONE; +OMEP40CA5 PO; +PREG50CA3 PO; +SERT50TA29 PO; +SUMA100T2 PO
[2023-09-18] MEDS ORDERED: propofoL 500 MG/50 ML VIAL As Ordered ONE (11:17)
[2023-09-18 11:34] VITALS: TEMP 97.5
[2023-09-18 11:54] VITALS: BP 134/60; O2SAT 99
== END 2023-09-18 12:02 | disposition home or self-care (01) ==
LOC: M OPP 09:09
PROVIDERS: ATTEND Internal Medicine Gastroenterology
DX: R19.5 Other fecal abnormalities (principal); D12.7 Benign neoplasm of rectosigmoid junction; K63.5 Polyp of colon; K64.8 Other hemorrhoids; K57.30 Diverticulosis of large intestine without perforation or abscess without bleeding; Z80.0 Family history of malignant neoplasm of digestive organs; Z83.719 Family history of colon polyps, unspecified; D50.9 Iron deficiency anemia, unspecified; Z98.0 Intestinal bypass and anastomosis status; K22.89 Other specified disease of esophagus; I10 Essential (primary) hypertension; I05.9 Rheumatic mitral valve disease, unspecified; G47.30 Sleep apnea, unspecified; F17.200 Nicotine dependence, unspecified, uncomplicated; Z98.84 Bariatric surgery status; Z79.02 Long term (current) use of antithrombotics/antiplatelets; Z79.1 Long term (current) use of non-steroidal anti-inflammatories (NSAID); Z79.51 Long term (current) use of inhaled steroids; Z79.52 Long term (current) use of systemic steroids; Z79.899 Other long term (current) drug therapy

== ENCOUNTER → 2023-10-04 | Outpatient (CLI) | payer MEDICARE, MEDICAID ==
[~2023-10-04] MED LIST changes: -NS 1,000 ML IV ONE
== END ==
LOC: M PAIN 08:45
PROVIDERS: ATTEND Anesthesiology
DX: M54.2 Cervicalgia (principal); M79.18 Myalgia, other site; I10 Essential (primary) hypertension; Z98.84 Bariatric surgery status; Z79.1 Long term (current) use of non-steroidal anti-inflammatories (NSAID); Z79.51 Long term (current) use of inhaled steroids; Z79.891 Long term (current) use of opiate analgesic; Z79.899 Other long term (current) drug therapy; Z88.0 Allergy status to penicillin; Z88.5 Allergy status to narcotic agent; Z88.6 Allergy status to analgesic agent

== ENCOUNTER → 2023-11-28 | Outpatient (CLI) | payer MEDICARE, MEDICAID ==
[~2023-11-28] MED LIST changes: +NORCO, ANEXSIA 5/325MG TABLET (HYDROcodone/ACETAMINOPHEN) As Ordered ONE; +ONDANSETRON 4MG ORAL DISINTEGRATING TAB As Ordered ONE; +TRIAMCINOLONE ACETONIDE SUSP 40MG/ML 1ML VIAL As Ordered ONE; +diazePAM 2 MG TAB As Ordered ONE
== END ==
LOC: M PAIN 08:15
PROVIDERS: ATTEND Anesthesiology
DX: M79.10 Myalgia, unspecified site (principal); F17.200 Nicotine dependence, unspecified, uncomplicated; G47.30 Sleep apnea, unspecified; I10 Essential (primary) hypertension; Z79.02 Long term (current) use of antithrombotics/antiplatelets; Z79.1 Long term (current) use of non-steroidal anti-inflammatories (NSAID); Z79.51 Long term (current) use of inhaled steroids; Z79.899 Other long term (current) drug therapy; Z88.5 Allergy status to narcotic agent; Z88.6 Allergy status to analgesic agent
CPT/HCPCS: 20552; J0665; J3301

== ENCOUNTER → 2023-12-29 | Outpatient (CLI) | payer MEDICARE, MEDICAID ==
[~2023-12-29] MED LIST changes: -NORCO, ANEXSIA 5/325MG TABLET (HYDROcodone/ACETAMINOPHEN) As Ordered ONE; -ONDANSETRON 4MG ORAL DISINTEGRATING TAB As Ordered ONE; -TRIAMCINOLONE ACETONIDE SUSP 40MG/ML 1ML VIAL As Ordered ONE; -diazePAM 2 MG TAB As Ordered ONE
== END ==
LOC: M PAIN 09:15
PROVIDERS: ATTEND Nurse Practitioner Family
DX: G89.29 Other chronic pain (principal); M54.2 Cervicalgia; M79.12 Myalgia of auxiliary muscles, head and neck; M51.16 Intervertebral disc disorders with radiculopathy, lumbar region; R51.9 Headache, unspecified; F07.81 Postconcussional syndrome; E55.9 Vitamin D deficiency, unspecified; F32.A Depression, unspecified; F41.9 Anxiety disorder, unspecified; I10 Essential (primary) hypertension; E53.8 Deficiency of other specified B group vitamins; G47.00 Insomnia, unspecified; E78.5 Hyperlipidemia, unspecified; M17.11 Unilateral primary osteoarthritis, right knee; M47.812 Spondylosis without myelopathy or radiculopathy, cervical region; F17.210 Nicotine dependence, cigarettes, uncomplicated; Z79.1 Long term (current) use of non-steroidal anti-inflammatories (NSAID); Z79.891 Long term (current) use of opiate analgesic; Z79.899 Other long term (current) drug therapy; Z88.5 Allergy status to narcotic agent; Z88.6 Allergy status to analgesic agent; Z88.8 Allergy status to other drugs, medicaments and biological substances

== ENCOUNTER → 2024-01-04 | Outpatient (CLI) | payer MEDICARE ==
[2024-01-04 10:51] LABS: HEMATOCRIT 43.8 % (36.0-47.0); HEMOGLOBIN 13.8 g/dl (12.0-15.5); MEAN CORPUSCULAR HEMOGLOBIN 30.9 pg (27.0-33.0); MEAN CORPUSCULAR HGB CONC 31.5 g/dl (32.0-36.5); MEAN CORPUSCULAR VOLUME 98.2 fl (80.0-96.0); PLATELET COUNT, AUTOMATED 250 10^3/uL (150-450); RED BLOOD COUNT 4.46 10^6/uL (4.00-5.40); WHITE BLOOD COUNT 6.4 10^3/uL (4.0-10.0)
[2024-01-04 11:28] LABS: FERRITIN 14.6 NG/ML (7.3-270.7)
[2024-01-04 11:29] LABS: IRON (FE) 57 UG/DL (50-170); PERCENT SATURATION 17.4 % (13.2-45.0); TOTAL IRON BINDING CAPACITY 328 UG/DL (250-425)
[2024-01-04 11:30] LABS: ALBUMIN 3.5 G/DL (3.2-5.2); ALKALINE PHOSPHATASE 94 U/L (46-116); ALT/SGPT 14 U/L (7.0-40); AST/SGOT 13 U/L (<34); BILIRUBIN,TOTAL 0.3 MG/DL (0.3-1.2); BLOOD UREA NITROGEN 16 MG/DL (9-23); CARBON DIOXIDE LEVEL 30 MMOL/L (20-31); CHLORIDE LEVEL 109 MMOL/L (98-107); CREATININE FOR GFR 0.58 MG/DL (0.55-1.30); GLOMERULAR FILTRATION RATE > 60.0 (>45); GLUCOSE, FASTING 86 MG/DL (74-106); POTASSIUM SERUM 4.5 MMOL/L (3.5-5.1); SODIUM LEVEL 140 MMOL/L (136-145); TOTAL PROTEIN 6.2 G/DL (5.7-8.2); VITAMIN B12 LEVEL 523 PG/ML (211-911)
== END ==
LOC: M PLALAB 07:30
PROVIDERS: ATTEND Nurse Practitioner Adult Health
DX: I10 Essential (primary) hypertension (principal); D50.9 Iron deficiency anemia, unspecified; E55.9 Vitamin D deficiency, unspecified; E53.8 Deficiency of other specified B group vitamins

== ENCOUNTER → 2024-02-07 | Outpatient (CLI) | payer MEDICARE, MEDICAID | LOC: M RAD 07:03 | PROVIDERS: ATTEND Nurse Practitioner Adult Health | DX: Z12.2 Encounter for screening for malignant neoplasm of respiratory organs (principal); Z87.891 Personal history of nicotine dependence; I25.10 Atherosclerotic heart disease of native coronary artery without angina pectoris; Z98.84 Bariatric surgery status; Z90.49 Acquired absence of other specified parts of digestive tract ==

== ENCOUNTER → 2024-02-20 | Outpatient (CLI) | payer MEDICARE, MEDICAID ==
[~2024-02-20] MED LIST changes: +ISOVUE-M 300 61% 15ML VIAL As Ordered ONE; +LIDOCAINE 1% SDV 30ML VIAL As Ordered ONE; +NORCO, ANEXSIA 5/325MG TABLET (HYDROcodone/ACETAMINOPHEN) As Ordered ONE; +ONDANSETRON 4MG ORAL DISINTEGRATING TAB As Ordered ONE; +dexAMETHasone 10MG/1ML VIAL PRES.FREE As Ordered ONE; +diazePAM 2 MG TAB As Ordered ONE
== END ==
LOC: M PAIN 08:15
PROVIDERS: ATTEND Anesthesiology
DX: M51.16 Intervertebral disc disorders with radiculopathy, lumbar region (principal); G89.29 Other chronic pain; R51.9 Headache, unspecified; F07.81 Postconcussional syndrome; E55.9 Vitamin D deficiency, unspecified; F32.A Depression, unspecified; F41.9 Anxiety disorder, unspecified; I10 Essential (primary) hypertension; E53.8 Deficiency of other specified B group vitamins; E61.1 Iron deficiency; I87.2 Venous insufficiency (chronic) (peripheral); G47.00 Insomnia, unspecified; E78.5 Hyperlipidemia, unspecified; M17.11 Unilateral primary osteoarthritis, right knee; F17.210 Nicotine dependence, cigarettes, uncomplicated; Z79.1 Long term (current) use of non-steroidal anti-inflammatories (NSAID); Z79.891 Long term (current) use of opiate analgesic; Z79.899 Other long term (current) drug therapy; Z79.51 Long term (current) use of inhaled steroids; Z88.5 Allergy status to narcotic agent; Z88.6 Allergy status to analgesic agent; Z88.8 Allergy status to other drugs, medicaments and biological substances
CPT/HCPCS: 62323; J1100; Q9967

== ENCOUNTER 2024-03-28 07:57 | Outpatient (CLI) | payer MEDICARE, MEDICAID ==
[~2024-03-28] VITALS: Ht 154.9 cm; Wt 70.5 kg
[~2024-03-28 07:57] MED LIST changes: +ALBUTEROL SULFATE 2.5MG/0.5ML INH NEB SOLN INH PRN; +EPINEPHrine INJ 1 MG/ML 1ML AMP IM PRN; -ISOVUE-M 300 61% 15ML VIAL As Ordered ONE; -LIDOCAINE 1% SDV 30ML VIAL As Ordered ONE; -NORCO, ANEXSIA 5/325MG TABLET (HYDROcodone/ACETAMINOPHEN) As Ordered ONE; -ONDANSETRON 4MG ORAL DISINTEGRATING TAB As Ordered ONE; -dexAMETHasone 10MG/1ML VIAL PRES.FREE As Ordered ONE; -diazePAM 2 MG TAB As Ordered ONE; +diphenhydrAMINE 50MG/ML VIAL IV PRN; +methylPREDNISolone 125MG 2ML VIAL IV PRN
[2024-03-28 08:28] VITALS: BP 115/57; O2SAT 98
[2024-03-28] MEDS: IRON SUCROSE 300 MG in NS 250 ML IV ONE (08:59)
[2024-03-28 10:53] VITALS: BP 122/59; O2SAT 99
== END 2024-03-28 10:55 ==
LOC: M INFU 07:57
PROVIDERS: ATTEND Nurse Practitioner Adult Health
DX: D50.9 Iron deficiency anemia, unspecified (principal); Z98.84 Bariatric surgery status; Z88.8 Allergy status to other drugs, medicaments and biological substances; Z88.6 Allergy status to analgesic agent
CPT/HCPCS: 96365; 96366; J1756

== ENCOUNTER 2024-04-18 07:20 | Outpatient (CLI) | payer MEDICARE, MEDICAID ==
[~2024-04-18] VITALS: Ht 154.9 cm; Wt 73.2 kg
[2024-04-18 07:30] VITALS: BP 127/60; O2SAT 100
[2024-04-18] MEDS: IRON SUCROSE 300 MG in NS 250 ML IV ONE (07:47)
[2024-04-18 09:25] VITALS: BP 144/66; O2SAT 100
== END 2024-04-18 09:25 ==
LOC: M INFU 07:20
PROVIDERS: ATTEND Nurse Practitioner Adult Health
DX: D50.9 Iron deficiency anemia, unspecified (principal); Z98.84 Bariatric surgery status; Z88.6 Allergy status to analgesic agent; Z88.8 Allergy status to other drugs, medicaments and biological substances
CPT/HCPCS: 96365; 96366; J1756

== ENCOUNTER → 2024-05-13 | Outpatient (CLI) | payer MEDICARE, MEDICAID ==
[~2024-05-13] MED LIST changes: -ALBUTEROL SULFATE 2.5MG/0.5ML INH NEB SOLN INH PRN; -EPINEPHrine INJ 1 MG/ML 1ML AMP IM PRN; -diphenhydrAMINE 50MG/ML VIAL IV PRN; -methylPREDNISolone 125MG 2ML VIAL IV PRN
== END ==
LOC: M PAIN 09:15
PROVIDERS: ATTEND Nurse Practitioner Family
DX: M51.16 Intervertebral disc disorders with radiculopathy, lumbar region (principal); M79.10 Myalgia, unspecified site; M54.2 Cervicalgia; G89.29 Other chronic pain; F17.210 Nicotine dependence, cigarettes, uncomplicated; E55.9 Vitamin D deficiency, unspecified; I10 Essential (primary) hypertension; E78.5 Hyperlipidemia, unspecified; Z79.1 Long term (current) use of non-steroidal anti-inflammatories (NSAID); Z79.891 Long term (current) use of opiate analgesic; Z79.899 Other long term (current) drug therapy; Z88.5 Allergy status to narcotic agent; Z88.6 Allergy status to analgesic agent; Z88.8 Allergy status to other drugs, medicaments and biological substances

== ENCOUNTER → 2024-11-12 | Outpatient (CLI) | payer MEDICARE, MEDICAID ==
[2024-11-12 11:24] LABS: PLATELET COUNT, AUTOMATED 206 10^3/uL (150-450)
[2024-11-12 12:16] LABS: ALT/SGPT 13 U/L (7.0-40); AST/SGOT 15 U/L (<34); CALCIUM LEVEL 9.1 MG/DL (8.3-10.6); CARBON DIOXIDE LEVEL 26 MMOL/L (20-31); CHLORIDE LEVEL 110 MMOL/L (98-107); CREATININE FOR GFR 0.59 MG/DL (0.55-1.30); GLOMERULAR FILTRATION RATE > 90.0 (>45); POTASSIUM SERUM 4.3 MMOL/L (3.5-5.1); SODIUM LEVEL 146 MMOL/L (136-145)
== END ==
LOC: M LAB 10:26
PROVIDERS: ATTEND Nurse Practitioner Adult Health
DX: D50.9 Iron deficiency anemia, unspecified (principal); I10 Essential (primary) hypertension

== ENCOUNTER → 2025-03-11 | Outpatient (CLI) | payer MEDICARE, MEDICAID ==
[2025-03-11 11:32] LABS: PLATELET COUNT, AUTOMATED 258 10^3/uL (150-450)
[2025-03-11 12:01] LABS: ALT/SGPT 13 U/L (7.0-40); AST/SGOT 17 U/L (<34); CALCIUM LEVEL 9.6 MG/DL (8.3-10.6); CARBON DIOXIDE LEVEL 28 MMOL/L (20-31); CHLORIDE LEVEL 107 MMOL/L (98-107); CREATININE FOR GFR 0.65 MG/DL (0.55-1.30); GLOMERULAR FILTRATION RATE > 90.0 (>45); POTASSIUM SERUM 5.0 MMOL/L (3.5-5.1); SODIUM LEVEL 143 MMOL/L (136-145)
== END ==
LOC: M PLALAB 08:47
PROVIDERS: ATTEND Nurse Practitioner Adult Health
DX: D50.9 Iron deficiency anemia, unspecified (principal); E55.9 Vitamin D deficiency, unspecified